=== PATIENT | male | born 1945 | race Caucasian/White ===

== ENCOUNTER 2017-12-04 10:11 | Outpatient (REF) | payer MEDICARE, MEDICAID, SELFPAY ==
[2017-12-04 21:47] LABS: Anion Gap 10.4 mmol/L (3-11); BUN 28 mg/dL (7-18); CO2 27.6 mmol/L (21.0-32.0); CREATININE 1.08 mg/dL (0.70-1.30); Chloride 100 mmol/L (98-107); Glucose 192 mg/dL (70-100); Potassium 4.1 mmol/L (3.5-5.1); Sodium 138 mmol/L (136-145)
[2017-12-04 22:12] LABS: Microalb ug/mg Crea 7.5 ug/mg Cr
[2017-12-06 12:39] LABS: Hepatitis C Ab w Rflx HCV PCR Negative (NEGAT)
== END 2017-12-04 10:31 ==
LOC: NCHCN 10:11
PROVIDERS: Visit Provider Internal Medicine
DX: I10 Essential (primary) hypertension (principal); E11.9 Type 2 diabetes mellitus without complications; Z11.59 Encounter for screening for other viral diseases
CPT/HCPCS: 80048; 86803; 82043; 82570

== ENCOUNTER 2018-12-07 09:31 | Outpatient (REF) | payer OTHER, MEDICAID, SELFPAY ==
[2018-12-07 20:48] LABS: COMMENT (LAB VIEW ONLY) 153.26 mg/dL; Microalb ug/mg Crea 8.1 ug/mg Cr
[2018-12-07 20:51] LABS: Anion Gap 10.6 mmol/L (3-11); BUN 17 mg/dL (7-18); CO2 30.4 mmol/L (21.0-32.0); Calcium 9.6 mg/dL (8.5-10.1); Calculated LDL 61 mg/dL; Chloride 100 mmol/L (98-107); Cholesterol 140 mg/dL (50-200); Estimated GFR 59.51 (mL/min/1.73m2); Glucose 139 mg/dL (70-100); HDL Cholesterol 30 mg/dL (40-60); Potassium 4.4 mmol/L (3.5-5.1); Sodium 141 mmol/L (136-145); Triglyceride 249 mg/dL (30-150)
[2018-12-07 20:53] LABS: Hemoglobin A1C 6.9 % (4.5-6.2)
== END 2018-12-07 09:51 ==
LOC: NCHCN 09:31
PROVIDERS: Visit Provider Internal Medicine
DX: E11.9 Type 2 diabetes mellitus without complications (principal); I10 Essential (primary) hypertension; Z13.6 Encounter for screening for cardiovascular disorders
CPT/HCPCS: 80048; 80061; 82043; 82570; 83036

== ENCOUNTER 2019-05-23 12:11 | Outpatient (REF) | payer OTHER, MEDICAID, SELFPAY ==
[2019-05-23 20:59] LABS: Abs Immature Grans 0.01 k/cumm (0.0-0.09); Absolute Basophil Count 0.04 k/cumm (0.0-0.2); Absolute Eosinophil Count 0.11 k/cumm (0.0-0.7); Absolute Lymphocyte Count 1.08 k/cumm (1.2-3.4); Absolute Monocyte Count 0.43 k/cumm (0.11-0.7); Absolute Neutrophil Count 5.06 k/cumm (1.2-6.7); Basophils % 0.6; Eosinophils % 1.6; HCT 41.4 % (40.0-50.0); HGB 13.9 g/dL (13.5-17.5); Immature Grans % 0.1 %; Mean Corp. HGB Concentration 33.6 g/dL (32.0-36.0); Mean Corpuscular Hemoglobin 30.1 pg (27.0-33.0); Mean Corpuscular Volume 89.6 fL (80-95); Mean Platelet Volume 11.4 fL (8.0-11.0); Monocytes % 6.4; Neutrophils % 75.3; Platelet Count 303 x1000/uL (130-400); RBC 4.62 m/cumm (4.50-6.00); RBC Distribution Width 13.7 % (11.8-14.1); White Blood Cell Count 6.73 k/cumm (4.4-10.8)
[2019-05-23 21:00] LABS: Anion Gap 8.3 mmol/L (3-11); BUN 18 mg/dL (7-18); CO2 29.7 mmol/L (21.0-32.0); Calcium 9.7 mg/dL (8.5-10.1); Chloride 100 mmol/L (98-107); Glucose 144 mg/dL (74-106); Potassium 4.5 mmol/L (3.5-5.1); Sodium 138 mmol/L (136-145)
== END 2019-05-23 12:31 ==
LOC: NCHCN 12:11
PROVIDERS: Visit Provider Internal Medicine
DX: I10 Essential (primary) hypertension (principal); E11.9 Type 2 diabetes mellitus without complications
CPT/HCPCS: 80048; 85025

== ENCOUNTER 2019-06-28 08:30 | Outpatient (CLI) | payer OTHER, MEDICAID, SELFPAY ==
[2019-06-29 13:56] LABS: COVID-19 RT-PCR UVMMC Result Negative (Negative)
== END 2019-06-28 08:50 ==
PROVIDERS: PCP Nurse Practitioner Family; Visit Provider Nurse Practitioner Family
DX: R50.9 Fever, unspecified (principal)
CPT/HCPCS: U0003

== ENCOUNTER 2020-01-10 10:20 | Outpatient (REF) | payer OTHER, MEDICAID, SELFPAY | END 2020-01-10 10:40 | LOC: NCHCN 10:20 | PROVIDERS: PCP Nurse Practitioner Family; Visit Provider Nurse Practitioner Family | DX: Z51.89 Encounter for other specified aftercare (principal) | CPT/HCPCS: 87070; 87205 ==

== ENCOUNTER 2020-07-03 14:56 | Outpatient (REF) | payer OTHER, MEDICAID, SELFPAY ==
[2020-07-03 21:32] LABS: COMMENT (LAB VIEW ONLY) 62.11 mg/dL; Microalb ug/mg Crea 5.5 ug/mg Cr
[2020-07-03 21:46] LABS: Hemoglobin A1C 6.7 % (<5.7)
[2020-07-03 21:48] LABS: ALT 31 U/L (16-63); AST 17 U/L (15-37); Albumin 4.2 g/dL (3.4-5.0); Alkaline Phosphatase 62 U/L (46-116); Anion Gap 11.7 mmol/L (3-11); BUN 22 mg/dL (7-18); Bilirubin, Total 0.6 mg/dL (0.2-1.0); CO2 28.3 mmol/L (21.0-32.0); CREATININE 1.2 mg/dL (0.70-1.30); Calcium 9.7 mg/dL (8.5-10.1); Chloride 102 mmol/L (98-107); Estimated GFR 59.35 (mL/min/1.73m2); Glucose 142 mg/dL (74-106); Potassium 4.6 mmol/L (3.5-5.1); Sodium 142 mmol/L (136-145); Total Protein 7.7 g/dL (6.4-8.2)
== END 2020-07-04 07:50 | disposition home or self-care (01) ==
LOC: NCHCN 14:56
PROVIDERS: PCP Nurse Practitioner Family; Visit Provider Internal Medicine
DX: E11.8 Type 2 diabetes mellitus with unspecified complications (principal); I10 Essential (primary) hypertension
CPT/HCPCS: 80053; 82043; 82570; 83036

== ENCOUNTER 2021-06-29 07:47 | Outpatient (REF) | payer MEDICARE, MEDICAID, SELFPAY ==
[2021-06-29 17:39] LABS: Hemoglobin A1C 7.2 % (<5.7)
[2021-06-29 17:52] LABS: COMMENT (LAB VIEW ONLY) 84.04 mg/dL; Microalb ug/mg Crea 6.3 ug/mg Cr
[2021-06-29 17:53] LABS: Anion Gap 7.4 mmol/L (3-11); BUN 25 mg/dL (7-18); CO2 27.6 mmol/L (21.0-32.0); CREATININE 1.2 mg/dL (0.70-1.30); Calcium 9.3 mg/dL (8.5-10.1); Calculated LDL 76 mg/dL (<100); Chloride 101 mmol/L (98-107); Cholesterol 178 mg/dL (<200); Estimated GFR 59.18 (mL/min/1.73m2); Glucose 157 mg/dL (74-106); HDL Cholesterol 35 mg/dL (40-60); Sodium 136 mmol/L (136-145); Triglyceride 339 mg/dL (<150)
[2021-06-30 20:12] LABS: PSA, Screening 0.7 ng/mL (<=6.5)
== END 2021-06-29 07:48 | disposition home or self-care (01) ==
LOC: NCHCN 07:47
PROVIDERS: PCP Nurse Practitioner Family; Visit Provider Internal Medicine
DX: I10 Essential (primary) hypertension (principal); E78.5 Hyperlipidemia, unspecified; E11.9 Type 2 diabetes mellitus without complications; Z12.5 Encounter for screening for malignant neoplasm of prostate
CPT/HCPCS: 80048; 80061; 84153; 82043; 82570; 83036

== ENCOUNTER 2021-10-05 17:56 | Outpatient (REF) | payer MEDICARE, MEDICAID, SELFPAY ==
[2021-10-05 19:11] LABS: ALT 25 U/L (16-63); AST 17 U/L (15-37); Albumin 3.7 g/dL (3.4-5.0); Alkaline Phosphatase 58 U/L (46-116); Anion Gap 10.5 mmol/L (3-11); BUN 15 mg/dL (7-18); Bilirubin, Total 0.6 mg/dL (0.2-1.0); CO2 25.5 mmol/L (21.0-32.0); CREATININE 1.1 mg/dL (0.70-1.30); Calcium 9.2 mg/dL (8.5-10.1); Chloride 100 mmol/L (98-107); Glucose 157 mg/dL (74-106); Sodium 136 mmol/L (136-145); Total Protein 7.1 g/dL (6.4-8.2)
[2021-10-05 20:33] LABS: Calculated LDL 49 mg/dL (<100); Cholesterol 124 mg/dL (<200); HDL Cholesterol 36 mg/dL (40-60); Triglyceride 196 mg/dL (<150)
== END 2021-10-05 17:57 | disposition home or self-care (01) ==
LOC: NCHCN 17:56
PROVIDERS: PCP Nurse Practitioner Family; Visit Provider Nurse Practitioner Family
DX: E78.5 Hyperlipidemia, unspecified (principal); E11.9 Type 2 diabetes mellitus without complications; E66.9 Obesity, unspecified
CPT/HCPCS: 80053; 80061

== ENCOUNTER 2023-02-02 13:28 | Outpatient (REF) | payer MEDICARE, MEDICAID, SELFPAY ==
[2023-02-02 15:12] LABS: HCT 44.6 % (40.0-50.0); HGB 14.4 g/dL (13.5-17.5); MCH 30.5 pg (27.0-33.0); MCHC 32.3 % (32.0-36.0); MCV 95 fL (80-95); MPV 10.7 fL (8.0-11.0); Platelet Count 282 10^3/uL (130-400); RBC 4.72 10^6/uL (4.36-5.78); RDW 14.3 % (11.8-14.1); RDW-SD 49.1 fL; WBC 5.94 10^3/uL (4.4-10.8)
[2023-02-02 15:25] LABS: Anion Gap 9.7 mmol/L (3-11); BUN 21 mg/dL (7-18); CO2 27.3 mmol/L (21.0-32.0); CREATININE 1.1 mg/dL (0.70-1.30); Calcium 9.5 mg/dL (8.5-10.1); Calculated LDL 45 mg/dL (<100); Chloride 103 mmol/L (98-107); Cholesterol 125 mg/dL (<200); Estimated GFR 69.57 (mL/min/1.73m2); Glucose 164 mg/dL (74-106); HDL Cholesterol 38 mg/dL (40-60); Potassium 4.6 mmol/L (3.5-5.1); Sodium 140 mmol/L (136-145); Triglyceride 213 mg/dL (<150)
[2023-02-02 15:33] LABS: Hemoglobin A1C 6.3 % (<5.7)
== END 2023-02-02 13:29 | disposition home or self-care (01) ==
LOC: NCHCN 13:28
PROVIDERS: PCP Nurse Practitioner Family; Visit Provider Internal Medicine
DX: I10 Essential (primary) hypertension (principal); E78.5 Hyperlipidemia, unspecified; E11.9 Type 2 diabetes mellitus without complications
CPT/HCPCS: 80048; 80061; 85027; 83036

== ENCOUNTER 2023-08-07 09:17 | Outpatient (REF) | payer MEDICARE, MEDICAID, SELFPAY ==
[2023-08-07 16:40] LABS: COMMENT (LAB VIEW ONLY) 65.85 mg/dL; Microalb ug/mg Crea 3.8 ug/mg Cr
== END 2023-08-07 09:18 | disposition home or self-care (01) ==
LOC: NCHCN 09:17
PROVIDERS: PCP Nurse Practitioner Family; Visit Provider Family Medicine
DX: E11.40 Type 2 diabetes mellitus with diabetic neuropathy, unspecified (principal)
CPT/HCPCS: 82043; 82570

== ENCOUNTER 2024-02-02 12:21 | Outpatient (REF) | payer MEDICARE, MEDICAID, SELFPAY ==
--- OUTSIDE RECORDS SUMMARY | 2024-02-02 12:24 | XMS_ITS | Encounter Summary ---
Author Organization [facility] Address [address] [place] [id number] Care Team Providers Care Drapery Estimator Name Role Phone Velma Jimenez Primary Care Provider [phone] Encounter Details Date Type Department Care Team (Late st Contact Info) Description 06/18/2019 10:[address] [facility] OR [address], [place] [id number] Tina Avelar MD [address] [facility] [address] [place] [address] Anesthesia Record Procedure Summary Procedure Name Responsible Anesthesiologist Anesthesia Start Time Anesthesia Stop Time pars plana vitrectomy, membrane peeling, and gas tamponade, all to the right eye (Right: Eye) Tina Avelar MD 06/18/19 1032 06/18/19 1134 Events Date Time Event Comment 06/18/2019 1032 An Start The patient was re-evaluated immediately before moderate or deep sedation use, before anesthesia induction, or before the anesthesia procedure. 1032 An Start Data 1038 Anesthesia Ready 1125 an stop data 1134 Handoff to RN I completed my handoff to the receiving nurse during which we: 1. Identified the patient 2. Identified the responsible provider 3. Reviewed the pertinent medical history 4. Discussed the surgical course 5. Reviewed intra-op anesthesia management and issues during anesthesia 6. Set expectations for post-procedure period 7. Allowed opportunity for questions and acknowledgement of understanding. 1134 Handoff to RN I completed my handoff to the receiving nurse during which we: 1. Identified the patient 2. Identified the responsible provider 3. Reviewed the pertinent medical history 4. Discussed the surgical course 5. Reviewed intra-op anesthesia management and issues during anesthesia 6. Set expectations for post-procedure period 7. Allowed opportunity for questions and acknowledgement of understanding. 1134 Handoff to RN I completed my handoff to the receiving nurse during which we: 1. Identified the patient 2. Identified the responsible provider 3. Reviewed the pertinent medical history 4. Discussed the surgical course 5. Reviewed intra-op anesthesia management and issues during anesthesia 6. Set expectations for post-procedure period 7. Allowed opportunity for questions and acknowledgement of understanding. 1134 An Stop Meds Name Total fentanyl citrate (PF) injection 25 mcg midazolam (VERSED) injection 1 mg/mL 1 m g ketOROLAC (TORADOL) injection 30 mg lactated ringers (LR) infusion 400 mL * Agents Name O2 N2O Air * Blood No blood administrations on file. Lines, Drains, and Airways Type Details Placement Removal Wound 06/18/19; 1103; Inci erich; Right; Eye; vitrectomy, membrane peel, gas instillation ; N; Full thickness 06/18/19 1103 by Mayra Michaels RN Peripheral IV 06/18/19; 0835; B Br aun Introcan; Left, Dorsal; Hand; Inserted by RN (, RN); 1; None; 3.15% Chlorhexidine with IPA; 06/18/19; 1233; Discharged 06/18/19 0835 by Devan Lagos RN 06/18/19 1233 by Brian Velazquez RN documented in this encounter Social History Tobacco Use Types Packs/Day Years Used Date Smoking Tobacco: Former Pipe Q uit: 2014 Cigars Quit: 2014 Smokeless Tobacco: Never Comments:only cigar or pipe 1 per day Alcohol Use Standard Drinks/Week Comments Yes 1 (1 standard drink = 0.6 oz pur e alcohol) Sex and Gender Information Value Date Recorded Sex Assigned at Not on file Legal Sex Male 11:50 EDT Gender Identity Male 06/11/2019 13:52 EDT Sexual Orientation Not on file documented as of this encounter OR Notes * Anesthesia Postprocedure Evaluation - Brandon Reyna APRN - 06/18/2019 1134 EDT Patient: Nathan Harper Vital signs were reviewed with the recovery nurse. [facility] Vitals Value Taken Time BP 156/85 06/18/2019 11:33 Temp 37.1 06/18/2019 11:34 Resp 21 06/18/2019 11:34 Pulse From Oximetry 90 BPM 06/18/2019 11:34 SpO2 98 % 06/18/2019 11:34 Vitals shown include unvalidated device data. Last Pain Score - Numeric Pain Level (Scale 1-10): 0 Type of Anesthesia - general Anesthesia Post Evaluation Level of consciousness: awake and alert and oriented Temperature status: normothermia Respiratory status: airway patent and room air Cardiovascular status: acceptable Hydration status: adequate Nausea/Vomiting: none Pain management: adequate Post-Op Assessment: patient tolerated procedure well with no complications and patient satisfied with anesthesia care Patient participation: able to participate Disposition: outpatient/home * Anesthesia Preprocedure Evaluation - Brandon Reyna APRN - 06/18/2019 0932 EDT Images from the original note were not included. Anesthesia Preprocedure Evaluation Patient Medical History, including Anesthesia History reviewed. Chart and Nursing Notes reviewed, including NPO status and Medication History. Additional ROS/History Findings: No Known Allergies Review of Systems Past Medical History: Diagnosis Date ??? Diabetes mellitus, type 2 ([facility] 2002 tx w/ oral meds .last A1c was 6.9 in 03/2019 ??? Exercise involving walking 1-2 mile daily ??? History of general anesthesia ??? Hyperlipidemia tx w/ meds ??? Hypertension tx w/ meds ??? Pain occas right hip pain Relevant Problems No relevant active problems Physical Exam Airway Mallampati: II Cardiovascular - normal exam Dental - normal exam Pulmonary - normal exam Abdominal Anesthesia Plan ASA 2 Anesthesia Type - MAC (plan changed to local/MAC due to fact that patient has nobody at home for post-op care) Anesthesia plan and risks discussed. Informed consent obtained from patient. Code status discussed? No The preoperative history and physical which was performed within 30 days of this procedure, has been reviewed and the clinically appropriate elements of the physical examination have been repeated. There are no changes to the documented history and physical or, if so, such changes are documented inthis note PAT Note (Notes from 05/19/19 through 06/18/19) PAT Note by Renay Dexter RN at 06/11/2019 9:50 Version 1 of 1 Have you had any flu like symptoms within past six weeks? Runny nose No Fever no Cough no SOB No Chest tightness no Please elaborate if yes: Have you been in close contact with someone who has been diagnosed with Covid 19? no (close contact, within 6 feet of any person known to have Coronavirus in the past 14 days) If patient develops any of these symptoms between now and their surgery date instruct them to call us back at [phone] to report symptoms If the patient answers yes, to any of these questions during PAT, -RN to flag this chart for anesthesia review and complete call -RN to communicate with surgical office about anesthesia review (If patient is in Surgical Admissions and answers yes, please notify Surgery and Anesthesia team). Follow proper precautions- yellow mask to patient/family. [place]: Visitor Policy: OP- one non-sick escort in waiting room, no visitors/escort in PeriOp Exceptions: Child-1 parent, special needs- 1 caregiver IP- One non-sick visitor/escort in waiting room, no visitors/escort in PeriOp Children under age of 16 y.o. are not permitted. Only ADA service animals are permitted into the hospital. All other animals, including previously approved therapy/support animals, are not allowed at this time. (No animals will be allowed into Preop, OR, or PACU)[TD.1] Attribution Raymond [email or web address] - Renay Dexter RN on 06/11/2019 11:30 documented in this encounter Plan of Treatment Not on file documented as of this encounter Visit Diagnoses Not on filedocumented in this encounter Administered Medications Inactive Administered Medications - up to 3 most recent administrations Medication Order MAR Action Action Date Dose Rate Site fentaNYL citrate (PF) injection intravenous, PRN, Starting on Mon06/18/19 at 1040, Until Mon06/18/19 at 1134, Routine, Anesthesia Intraprocedure Given 06/18/2019 10:40 EDT 25 mcg ketOROLAC (TORADOL) injection PRN, Starting on Mon06/18/19 at 1121, Until Mon06/18/19 at 1134, Routine, Anesthesia Intraprocedure Given 06/18/2019 11:21 EDT 30 mg lactated ringers (LR) infusion 30 mL/hr, intravenous, CONTINUOUS, Starting on Mon06/18/19 at 0845, Until Mon06/18/19 at 1520, Routine, Preprocedure Continued by Anesthesia 06/18/2019 10:49 EDT New Bag 06/18/2019 8:39 EDT 30 mL/hr 30 mL/hr midazolam (PF) (VERSED) injection intravenous, PRN, Starting on Mon06/18/19 at 1042, Until Mon06/18/19 at 1134, Routine, Anesthesia Intraprocedure Given 06/18/2019 10:42 EDT 1 mg documented in this encounter Care Teams Drapery Estimator Relationship Specialty Start Date End Date Velma Jimenez [address] [facility] [place] [address] PCP - General Internal Medicine - Primary Care 06/18/19 documented as of this encounter
--- OUTSIDE RECORDS SUMMARY | 2024-02-02 12:24 | XMS_ITS | Encounter Summary ---
Author Organization [facility] Address [address] [place] [id number] Care Team Providers Care Healthcare Management Name Role Phone Velma Jimenez Primary Care Provider [phone] Encounter Details Date Type Department Care Team (Late st Contact Info) Description 06/18/2019 9:50 EDT - 06/18/2019 11:45 EDT Surgery [facility] [place] [address] [place] [id number] Federica Davidson MD [address] [place] [address] [address] [place] [address] pars plana vitrectomy, membrane peeling, and gas tamponade, all to the right eye [57066 (CPT??)] Surgery Details Date/Time Status Location OR Service Patient Class Case Cl ass Case Type Trauma Case? 06/18/2019 0950 Posted [facility] OR [facility] H - Elective Panel 1 Procedure LRB Anes Op Region Wound Class Comments pars plana vitrectomy, membr ane peeling, and gas tamponade, all to the right eye Right General Eye Class I/ Clean Surgeon Surgeon Role Service Panel Federica Davidson MD Primary Ophthalmology 1 documented in this encounter Social History Tobacco [...] on file documented as of this encounter Last Filed Vital Signs Vital Sign Reading Time Taken Comments Blood Pressure 151/78 06/18/2019 1145 EDT Pulse - - Temperature 36.6 ??C (97.9 ??F) 06/18/2019 1134 EDT Respiratory Rate 19 06/18/2019 1145 EDT Oxygen Saturation 99% 06/18/2019 1145 EDT Inhaled Oxygen Concentration - - Weight 93.6 kg (206 lb 5.6 oz) 06/18/2019 0819 E DT Height - - Body Mass Index 32.32 06/11/2019 0939 EDT documented in this encounter Discharge Instructions * Discharge Instructions* Federica Davidson MD - 06/18/2019 9:18 EDT ??? Leave your eye patch and shield - if any were placed by your surgeon - in place. ??? For pain, you may use Tylenol (acetominophen) and/or Advil (ibuprofen) or other similar non-prescription, [id number] medications in doses as noted on manufacturers' labels. Do not exceed daily dosing limits for any of the active ingredients. Be careful to check other medications you maybe taking by mouth for other conditions that may coincidentally contain one or more of these activeingredients. For example, if you have a chronic pain condition - say, arthritis - and are on pills regularly for that, check to see if those pills contain acetominophen as one of their active ingredients before using additional acetominophen for eye pain after today's surgery. For pain not controlled with this approach and/or for concerns and/or questions about use of these medications, call [facility] at [phone]. ??? Please maintain strict post-operative face-down (i.e., sleeping on one's stomach) positioning at all times except during three one-hour meal breaks per day and whatever brief breaks you need for dressing, restroom, shower, safe ambulation, etc. ??? For showering, avoid directing your face into the stream of the shower head. Do not worry abouta small amount of water and/or soap that gets into your eye patch and/or eye during shampooing, face washing, etc. ??? Do not lift anything heavier than a light bag of groceries and, until notified by your surgeon,do not exercise. ??? Follow-up tomorrow at [facility], [address] , 2nd floor, [place], at 9:00AM . (That location is up the block from [place] at the corner of [address] and [facility], across the street from [employer], and next door to [facility].) At that appointment, your surgeon and the [facility] staff will review post-operative instructions that will apply moving forward after tomorrow's visit; the instructions you are holding and reading right now apply to today, tonight, and tomorrow morning prior to your appointment. Tomorrow, you will learn about eye drop use after patch removal, further activity and/or exercise restrictions, any ongoing positioning needs, etc. It is very strongly recommended that you have another adult with you at that appointment and in the examination room to help you keep track of all of this and to help you figure out what questions you might have. documented in this encounter Medications at Time of Discharge acetaminophen (TYLENOL) 500 mg tablet Take 500 mg by mouth. aspirin 81 mg EC tablet Take 81 mg by mouth. diphenhydrAMINE (BENADRYL) 25 mg capsule Take 25 mg by mouth every 6 hours as needed. lisinopriL-hydro chlorothiazide (ZESTORETIC) 20-25 mg per tablet Take 1 Tab by mouth. metFORMIN (GLUCOPHAGE) 500 mg tablet Take 1,000 mg by mouth 2 times daily with breakfast and dinner. Multivitamins with Minerals tablet tablet Take 1 Tab by mouth daily. simvastatin (ZOCOR) 20 mg tablet Take 20 mg by mouth daily. SITagliptin (JANUVIA) 100 mg tablet Take 100 mg by mouth daily. triamcinolone (KENALOG) 0.1 % cream Apply topically as needed. documented as of this encounter Discharge Disposition Disposition Code Departure Means Destination Comment s Home or Self Care Car Home [facility] Services documented in this encounter H&P Notes * Federica Davidson MD - 06/18/2019 0911 EDT The preoperative history and physical which was performed within 30 days of this procedure has been reviewed and the clinically appropriate elements of the physical examination have been repeated. There are no changes to the documented history and physical or if so such changes are documented below Federica Davidson MD 06/18/2019 9:12 documented in this encounter Nursing Notes * Quique Ricardo, RN - 06/18/2019 0737 EDT COVID 19 Screening Perioperative PreOp Surgical Waiting Area Screening: Patient and Family will be screened at designated points of entry to [facility] Patient and Family will be screened again at entrance to Surgical Waiting Area by PreOp Screening RNs ??? PreOp Screening RN asks screening questions including (recent or chronic): - Cough, no - Runny nose, no - SOB, no - Fever/Chills, no - Chest congestion, no - Cold, no ? ? Temperature assessed: Temp > 38.0 is considered febrile ??? If patient or visitor screens positive for any symptoms: (consistent with entry screening procedures) ??? Hand patient and visitor a mask ??? Put them in the consult room ??? Page anesthesia charge to come and evaluate patient and give recommendation as to whether surgery should proceed ??? Anesthesia recommendation: 1. Cancel surgery: ??? Follow cancellation protocol - procedure not performed -Use Covid smart phrase to document planfor cancellation 2. Proceed with surgery: ??? Deemed not significant increased risk for being COVID+: ? Planned precautions - patient to continue with wearing mask; staff should wear mask and consistent hand hygiene with direct patient care ? PreOp Screening RN to document in the COVID smartphrase so the rest of the care team is aware ? Notify PreOp Big Data Software Engineer (TL) ??? Deemed high risk for being COVID+: ? Anesthesia notifies ID/Covid hotline to assess need for formal testing ? Appropriate PPE (surgical mask & gloves) to be donned by any staff coming in contact with patient ? Communicate with PreOp TL ? PreOp TL to set up negative pressure room and isolation cart ? PreOp Screening RN to transport patient to negative pressure room KENDRA in appropriate PPE (surgical mask, gloves) ? PreOp Screening RN hands patient off to PreOp RN. PreOp RN is in appropriate PPE in the negative pressure room - Gown - Gloves - N95 mask and face shield (or PAPR) - Shoe and head covers - Dons hospital scrubs - PAPR and hospital scrubs are located in OR dictation room off of OR lounge ? PreOp Screening RN to document using COVID smartphrase. 3. If deemed by anesthesia visitor must return to their vehicle and wait for phone call Pt temp: 37.1 Visitor Temp: Visitor Name: (If visitor is asked to wait in vehicle, please document visitor contacts in Epic) RN's to explain visitor policy: Visitor Policy OP- one visitor in WR, no visitors in PeriOp Exceptions: Child-1 parent, special needs- 1 caregiver IP- One visitor in WR, no visitors in PeriOp, visitor to leave after surgeon consult No children <16 yo in A. documented in this encounter OR Notes * OR Surgeon - Federica Davidson MD - 06/18/2019 0000 EDT OPERATIVE REPORT SERVICE DATE: 06/18/2019 PREOPERATIVE DIAGNOSIS: Macular hole, right eye. POSTOPERATIVE DIAGNOSIS: Macular hole, right eye. PROCEDURE: A 25-gauge pars plana vitrectomy, membrane peel, air-fluid exchange, C3F8 gas injection,right eye. ANESTHESIA: Retrobulbar anesthesia, monitored anesthesia care, right eye. SURGEON: Federica Davidson MD FINISH CLEANER: Carrie Lees [facility] INDICATIONS: The patient had a history of vision loss and was found to have a full-thickness macular hole in his right eye. He wished surgical rehabilitation of vision. NARRATIVE: After fully informed consent was obtained from the patient, including the possible loss of vision, loss of the eye or the need for reoperation, the patient was brought to the operating suite where the appropriate monitoring leads were placed on his body. A retrobulbar injection of 0.75% Marcaine mixed 50/50 with 2% lidocaine was instilled by the operating surgeon. When adequate akinesia and anesthesia were obtained, the patient was prepped and draped in the usual sterile fashion. A lid speculum was placed in his right eye, which was marked. A 25-gauge trocar was placed 3 mm posterior to the limbus at the 8 o'clock meridian. An infusion line was then snapped into place and turned on under direct visualization without complication. Trocars were placed at the 10 o'clock and 2 o'clock meridian, 3 mm posterior to the limbus. Using the wide angle Resight viewing system, a core vitrectomy was performed. Vitrectomy was carried out to the vitreous base. Triamcinolone acetonide was then injected into the vitreous cavity to highlight the internal limiting membrane. Using the flat macular lens membrane was peeled for 360 degrees around the macular hole. The wide angle viewing system was then brought back into place and the retinal periphery was checked for 360 degrees with scleral depression. No retinal breaks or tears were noted. An air-fluid exchange was performed. The instruments were removed from the eye, and C3F8 gas at a concentration of 14% was injected through the existing infusion line with egress of gas through the superotemporal sclerotomy. When adequate exchangehad occurred, trocars were removed from the eye. The eye pressure was checked and found to be approximately 15. Subconjunctival injections of Ancef and tobramycin were placed, as well as a sub Tenon's injection of Solu-Medrol, then the lid speculum was removed from the eye. The eye was dressed withatropine drops, TobraDex ointment, a patch and Feliciano shield. The patient left the operating suite in good stable condition. He will maintain a face-down position and will be seen in 1 day's time for followup. Unless otherwise noted, there were no complications, no blood loss, no cultures obtained, no specimens removed, and no drains retained. Federica Davidson MD 11 26 AM / Federica Davidson MD ln Confirmation: [id number] Dictation ID: [id number] documented in this encounter Miscellaneous Notes * Brief Op Note - Federica Davidson MD - 06/18/2019 0918 EDT Date: 06/18/2019 Brief Op Note Pre-op Diagnosis(es): macular hole right eye Post-op Diagnosis(es): macular hole right eye Procedure(s): 25g pars plana vitrectomy, membrane peeling, C3F8 gas tamponade, right eye Surgeon: Federica Davidson MD Doughnut Machine Operator: Erin Lees Anesthesia: general endotracheal intubation IV Fluid: 600cc Urine output: none Complications: none Federica Davidson MD documented in this encounter Plan of Treatment Not on file documented as of this encounter Procedures Procedure Name Priority Date/Time Associated Diagnosis Comments POCT GLUCOSE, INTERFACED Routine 06/18/2019 11:36 EDT VITRECTOMY, WITH RETINAL INTERNAL LIMITING MEMBRANE REMOVAL, PARS PLANA APPROACH 06/18/2019 10:19 EDT Macular hole of right eye POCT GLUCOSE, INTERFACED Routine 06/18/2019 8:26 EDT ECG REPORT - SCANNED 06/06/2019 14:39 EDT documented in this encounter Results * (ABNORMAL) POCT GLUCOSE, INTERFACED (06/18/2019 11:36 EDT) Glucose, POC 141(H) 70 - 100 mg/dL 06/18/2019 11:36 EDT [facility] irrigation system installer ID [id number] 06/18/2019 11:36 EDT [facility] HN LAB POC COMMENT (GLUCOSE) Test Performed by Nursing Services 06/18/2019 11:36 EDT [facility] Blood CAPILLARY BLOOD / Unknown 06/18/2019 11:36 EDT 06/18/2019 11:36 EDT us Tina Maiteekaterina Avelar MD POINT OF CARE TEST ORDERABL ES Final Result [facility] [address] [place] [address] * (ABNORMAL) POCT GLUCOSE, INTERFACED (06/18/2019 8:26 EDT) Glucose, POC 188(H) 70 - 100 mg/dL 06/19/2019 5:48 EDT [facility] irrigation system installer ID [id number] 06/19/2019 5:48 EDT [facility] HN LAB POC COMMENT (GLUCOSE) Test Performed by Nursing Services 06/19/2019 5:48 EDT [facility] Blood CAPILLARY BLOOD / Unknown 06/18/2019 8:26 EDT 06/19/2019 5:48 EDT us Federica Davidson MD POINT OF CARE TEST ORDERA BLES Final Result [facility] [address] [place] [address] * ECG REPORT - SCANNED (06/06/2019 14:39 EDT) 06/06/2019 14:3 9 EDT us Scan 2 Turning Machine Set Up Operator PROCEDURE/MINOR SURGICAL OR DERABLES Final Result documented in this encounter Visit Diagnoses Diagnosis Macular hole of right eye- Primary Macular cyst, hole, or pseudohole of retina Macular hole of right eye Macular cyst, hole, or pseudohole of retina documented in this encounter Admitting Diagnoses Diagnosis Macular hole of right eye Macular cyst, hole, or pseudohole of retina documented in this encounter Administered Medications Inactive Administered Medications - up to 3 most recent administrations Medication Order MAR Action Action Date Dose Rate Site acetaminophen (TYLENOL) tablet 650 mg 650 mg, oral, ONCE PRN, 1 dose, Starting on Mon06/18/19 at 1051, Until Mon06/18/19 at 1204, Pain, Routine Given 06/18/2019 12:04 EDT 650 mg atropine 0.1 mg/mL syringe 0.5 mg 0.5 mg, intravenous, PRN, Starting on Mon06/18/19 at 1122, Until Mon06/18/19 at 1520, Symptomatic HR < 50, Routine, Recovery (only) atropine 1 % ophthalmic solution 1 Drop 1 Drop, right eye, PRE-OP Q 5 MINUTES, 3 doses, Starting on Mon06/18/19 at 0843, Until Mon06/18/19 at 0859, vitreoretinal surgery, Routine, Preprocedure Given 06/18/2019 8:59 EDT 1 Drop Given 06/18/2019 8:58 EDT 1 Drop Given 06/18/2019 8:57 EDT 1 Drop atropine 1 % ophthalmic solution As needed, Starting on 06/18/19 at 1130, Until Mon06/18/19 at 1134, Routine, Intraprocedure Given 06/18/2019 11:30 EDT 2 Drops balanced salts (BSS) ophthalmic solution As needed, Starting on Mon06/18/19 at 1004, Until 06/18/19 at 1009, Routine, Intraprocedure Given 06/18/2019 10:04 EDT 500 mL bupivacaine (PF) (MARCAINE) 0.75 % (7.5 mg/mL) injection As needed, Starting on e 06/18/19 at 1042, Until Mon06/18/19 at 1051, Routine, Intraprocedure Given 06/18/2019 10:42 EDT 2.5 mL Right Eye ceFAZolin (ANCEF) injection As needed, Starting on e 06/18/19 at 1115, Until e 06/18/19 at 1101, Routine, Intraprocedure Given 06/18/2019 11:15 EDT 100 mg dextrose 50 % solution 12.5 g 12.5 g, intravenous, PRN, Starting on e 06/18/19 at 0950, Until Mon06/18/19 at 1520, Low Blood Sugar, Routine, Preprocedure Given 06/18/2019 10:45 EDT 3 mL Other glucagon injection 1 mg 1 mg, intramuscular, PRN, Starting on Mon06/18/19 at 0950, Until 06/18/19 at 1520, Low Blood Sugar, Routine, Preprocedure lactated ringers (LR) infusion 30 mL/hr, intravenous, CONTINUOUS, Starting on e 06/18/19 at 0845, Until Mon06/18/19 at 1520, Routine, Preprocedure Continued by Anesthesia 06/18/2019 10:49 EDT New Bag 06/18/2019 8:39 EDT 30 mL/hr 30 mL/hr lactated ringers (LR) infusion at 75 mL/hr, intravenous, CONTINUOUS, Starting on Mon06/18/19 at 1145, Until Mon06/18/19 at 1520, Routine, Recovery (only) lidocaine (PF) 10 mg/mL (1 %) injection 2 mg 2 mg, intradermal, PRN, 4 doses, Starting on Mon06/18/19 at 0819, Until Mon06/18/19 at 1520, peripheral intravenous catheter placement, Routine, Preprocedure lidocaine (PF) 20 mg/mL (2 %) injection As needed, Starting on Mon06/18/19 at 1042, Until Mon06/18/19 at 1051, Routine, Intraprocedure Given 06/18/2019 10:42 EDT 2.5 mL Right Eye methylPREDNISolone sod suc(PF) (SOLU-MEDROL) injection As needed, Starting on Mon06/18/19 at 1134, Until Mon06/18/19 at 1135, Routine, Intraprocedure Given 06/18/2019 11:34 EDT 20 mg Right Eye naloxone (NARCAN) injection 0.2 mg 0.2 mg, intravenous, PRN, Starting on Mon06/18/19 at 1122, Until Mon06/18/19 at 1520, Opioid Reversal, Routine, Recovery (only) phenylephrine (MYDFRIN) 2.5 % ophthalmic solution 1 Drop 1 Drop, right eye, PRE-OP Q 5 MINUTES, 3 doses, Starting on Mon06/18/19 at 0843, Until Mon06/18/19 at 0915, vitreoretinal surgery, Routine, Preprocedure Given 06/18/2019 9:15 EDT 1 Drop Given 06/18/2019 9:13 EDT 1 Drop Given 06/18/2019 9:12 EDT 1 Drop tobramycin (NEBCIN) injection As needed, Starting on Mon06/18/19 at 1132, Until Mon06/18/19 at 1134, Routine, Intraprocedure Given 06/18/2019 11:32 EDT 20 mg Right Eye tobramycin-dexamethasone (TOBRADEX) 0.3-0.1 % ophthalmic ointment As needed, Starting on Mon06/18/19 at 1131, Until Mon06/18/19 at 1134, Intraprocedure Given 06/18/2019 11:31 EDT 0.5 mL triamcinolone acetonide (KENALOG-40) injection As needed, Starting on Mon06/18/19 at 1115, Until Mon06/18/19 at 1101, Routine, Intraprocedure Given 06/18/2019 11:15 EDT 20 mg tropicamide (MYDRIACYL) 1 % ophthalmic solution 1 Drop 1 Drop, right eye, PRE-OP Q 5 MINUTES, 3 doses, Starting on Mon06/18/19 at 0843, Until Mon06/18/19 at 0907, vitreoretinal surgery, Routine, Preprocedure Given 06/18/2019 9:07 EDT 1 Drop Given 06/18/2019 9:06 EDT 1 Drop Given 06/18/2019 9:04 EDT 1 Drop documented in this encounter Active and Recently Administered Medications Times are shown in EDT. Continuous Medication Order 06/16/2019 06/17/2019 06/18/2019 lactated ringers (LR) infusion 30 mL/hr, intravenous, CONTINUOUS, Starting on Mon06/18/19 at 0845, Until Mon06/18/19 at 1520, Routine, Preprocedure 0839 (New Bag - Prov ider: Devan Lozada RN)1049 (Continued by Anesthesia - Provider: Brandon Reyna APRN)1134 (Anesthesia Volume Adjustment - Provider: Brandon Reyna APRN) lactated ringers (LR) infusion at 75 mL/hr, intravenous, CONTINUOUS, Starting on Mon06/18/19 at 1145, Until Mon06/18/19 at 1520, Routine, Recovery (only) 1144 (Continued Infu erich - Provider: Brian Velazquez RN)1215 (Completed - Provider: Brian Velazquez RN) PRN Medication Order 06/16/2019 06/17/2019 06/18/2019 acetaminophen (TYLENOL) tablet 650 mg (COMPLETED) 650 mg, oral, ONCE PRN, 1 dose, Starting on Mon06/18/19 at 1051, Until Mon06/18/19 at 1204, Pain, Routine 1204 (Given - Provid er: Brian Velazquez RN) atropine 0.1 mg/mL syringe 0.5 mg 0.5 mg, intravenous, PRN, Starting on Mon06/18/19 at 1122, Until Mon06/18/19 at 1520, Symptomatic HR < 50, Routine, Recovery (only) atropine 1 % ophthalmic solution 1 Drop (COMPLETED) 1 Drop, right eye, PRE-OP Q 5 MINUTES, 3 doses, Starting on Mon06/18/19 at 0843, Until Mon06/18/19 at 0859, vitreoretinal surgery, Routine, Preprocedure 0857 (Given - Provid er: Devan Lozada RN)0858 (Given - Provider: Devan Lozada RN)0859 (Given - Provider: Devan Lozada RN) atropine 1 % ophthalmic solution (CANCELED) As needed, Starting on Mon06/18/19 at 1130, Until Mon06/18/19 at 1134, Routine, Intraprocedure 1130 (Given - Provid er: Federcia Davidson MD) balanced salts (BSS) ophthalmic solution (CANCELED) As needed, Starting on Mon06/18/19 at 1004, Until Mon06/18/19 at 1009, Routine, Intraprocedure 1004 (Given - Provid er: Federica Davidson MD - Comment: BSS1: [id number] BSS2: [id number] 50% Dextrose, 3 mL: [id number]) bupivacaine (PF) (MARCAINE) 0.75 % (7.5 mg/mL) injection (CANCELED) As needed, Starting on Mon06/18/19 at 1042, Until Mon06/18/19 at 1051, Routine, Intraprocedure 1042 (Given - Provid er: Federica Davidson MD) ceFAZolin (ANCEF) injection (CANCELED) As needed, Starting on Mon06/18/19 at 1115, Until Mon06/18/19 at 1101, Routine, Intraprocedure 1115 (Given - Provid er: Federica Davidson MD - Comment: lot#[id number]) dextrose 50 % solution 12.5 g 12.5 g, intravenous, PRN, Starting on Mon06/18/19 at 0950, Until Mon06/18/19 at 1520, Low Blood Sugar, Routine, Preprocedure 1045 (Given - Provid er: Federica Davidson MD - Comment: added to BSS) glucagon injection 1 mg 1 mg, intramuscular, PRN, Starting on Mon06/18/19 at 0950, Until Mon06/18/19 at 1520, Low Blood Sugar, Routine, Preprocedure lidocaine (PF) 10 mg/mL (1 %) injection 2 mg 2 mg, intradermal, PRN, 4 doses, Starting on Mon06/18/19 at 0819, Until Mon06/18/19 at 1520, peripheral intravenous catheter placement, Routine, Preprocedure lidocaine (PF) 20 mg/mL (2 %) injection (CANCELED) As needed, Starting on Mon06/18/19 at 1042, Until Mon06/18/19 at 1051, Routine, Intraprocedure 1042 (Given - Provid er: Federica Davidson MD) methylPREDNISolone sod suc(PF) (SOLU-MEDROL) injection (CANCELED) As needed, Starting on Mon06/18/19 at 1134, Until Mon06/18/19 at 1135, Routine, Intraprocedure 1134 (Given - Provid er: Federica Davidson MD) naloxone (NARCAN) injection 0.2 mg 0.2 mg, intravenous, PRN, Starting on Mon06/18/19 at 1122, Until Mon06/18/19 at 1520, Opioid Reversal, Routine, Recovery (only) phenylephrine (MYDFRIN) 2.5 % ophthalmic solution 1 Drop (COMPLETED) 1 Drop, right eye, PRE-OP Q 5 MINUTES, 3 doses, Starting on Mon06/18/19 at 0843, Until Mon06/18/19 at 0915, vitreoretinal surgery, Routine, Preprocedure 0912 (Given - Provid er: Devan Lozada RN)09 (Given - Provider: Devan Lozada RN)0915 (Given - Provider: Devan Lozada RN) tobramycin (NEBCIN) injection (CANCELED) As needed, Starting on Mon06/18/19 at 1132, Until Mon06/18/19 at 1134, Routine, Intraprocedure 1132 (Given - Provid er: Federica Davidson MD - Comment: lot#[id number]) tobramycin-dexamethasone (TOBRADEX) 0.3-0.1 % ophthalmic ointment (CANCELED) As needed, Starting on Mon06/18/19 at 1131, Until Mon06/18/19 at 1134, Intraprocedure 1131 (Given - Provid er: Federica Davidson MD) triamcinolone acetonide (KENALOG-40) injection (CANCELED) As needed, Starting on Mon06/18/19 at 1115, Until Mon06/18/19 at 1101, Routine, Intraprocedure 1115 (Given - Provid er: Federica Davidson MD - Comment: lot#[id number]) tropicamide (MYDRIACYL) 1 % ophthalmic solution 1 Drop (COMPLETED) 1 Drop, right eye, PRE-OP Q 5 MINUTES, 3 doses, Starting on Mon06/18/19 at 0843, Until Mon06/18/19 at 0907, vitreoretinal surgery, Routine, Preprocedure 0904 (Given - Provid er: Devan Lozada RN)0906 (Given - Provider: Devan Lozada RN)0907 (Given - Provider: Devan Lozada RN) documented in this encounter Orders Medications Ordered That Phil ht Not Have Been Administered Count Last Ordered Date First Ordered Date atropine 0.1 mg/mL syringe 0.5 mg 1 020 glucagon injection 1 mg 1 06/18/2019 lactated ringers (LR) infusion 1 06/18/2019 lidocaine (PF) 10 mg/mL (1 % ) injection 2 mg 1 06/18/2019 naloxone (NARCAN) injection 0.2 mg 1 2019 Transfer Count Last Ordered Date First Orde red Date NON-TEACHING SERVICE 1 06/18/2019 Discharge Count Last Ordered Date First Orde red Date DISCHARGE PATIENT 1 06/18/2019 documented in this encounter Care Teams Healthcare Management Relationship Specialty Start Date End Date Velma Jimenez [address] [facility] [place] [address] PCP - General Internal Medicine - Primary Care 06/18/19 documented as of this encounter
--- OUTSIDE RECORDS SUMMARY | 2024-02-02 12:24 | XMS_ITS | Encounter Summary ---
Author Organization [facility] Address [address] [place] [address] Care Team Providers Care Semi Conductor Assembler Name Role Phone Velma Jimenez Primary Care Provider [phone] Encounter Details Date Type Department Care Team (Late st Contact Info) Description 02/01/2023 Lab Requisition [facility] Pathology & Laboratory Medicine - [facility] [address] [place] [address] Teressa Jane [address] [place] [address] Neoplasm of uncertain behavior of skin Social History Tobacco Use Types Packs/Day Years Used Date Smoking Tobacco: Former Pipe Q uit: 2014 Cigars Quit: 2015 Smokeless Tobacco: Never Comments:only cigar or pipe 1 per day Alcohol Use Standard Drinks/Week Comments Yes 1 (1 standard drink = 0.6 oz pur e alcohol) Interpersonal Safety Answer Date Record ed Physically Hurt Never 10/07/2019 Verbally Threaten Not on file 10/07/2019 Sex and Gender Information Value Date Recorded Sex Assigned at Not on file Legal Sex Male 11:50 EDT Gender Identity Male 06/11/2019 13:52 EDT Sexual Orientation Not on file documented as of this encounter Plan of Treatment Not on file documented as of this encounter Procedures Procedure Name Priority Date/Time Associated Diagnosis Comments SURGICAL PATHOLOGY Today 02/01/2023 14 :35 EST Neoplasm of uncertain behavior of skin documented in this encounter Results * SURGICAL PATHOLOGY (02/01/2023 14:35 EST) Note to Patient The following pathology results have been interpreted by your pathologist and may be available to you before your health provider has had the opportunity to review them. Please allow time for your provider to receive these results and explore management options, if applicable. 02/08/2023 10:04 [facility] Final Diagnosis A. SKIN OF DORSAL HAND, RIGHT RADIAL, SHAVE BIOPSY: - Actinic keratosis. B. 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 C. SKIN OF NASAL DORSUM, SHAVE BIOPSY: - Basal cell carcinoma, superficial and nodular type, present at the peripheral tissue edge. 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 02/08/2023 10:04 [facility] Diagnosis Comment C. Deeper sections have been examined. 02/08/2023 10:04 [facility] Attestation There was significant resident/fellow involvement in the diagnostic evaluation of this case. By the signature below, the attending physician certifies that they have personally conducted a gross and/or microscopic examination of the described specimens and rendered or confirmed the above diagnosis. 02/08/2023 10:04 [facility] at 1004 Clinical History A. 2.5 cm pink plaque; DDx: ISK vs BCC; B. 1.2 cm indurated pink plaque; BCC vs SCC; C. 4 mm pink pearly papule with telangiectasias; DDx: BCC vs other; clinical diagnosis code: D48.5 02/08/2023 10:04 [facility] Gross Description A. Received in formalin labelled with proper patient identification (initials W, A) and A. Right radial dorsal hand is a skin shave of a pale hanson white papule that measures 0.8 x 0.5 cm. The margin is inked blue, the specimen is bisected and entirely submitted in A1. B. Received in formalin labelled with proper patient identification (initials W, A) and B. Left superior preauricular... is a skin shave of a white papule that measures 0.9 x 0.7 x 0.2 cm that has an off center pale hanson indurated area that measures 0.5 x 0.3 cm. The margin is inked blue, the specimen is trisected and entirely submitted in B1. C. Received in formalin labelled with proper patient identification (initials W, A) and C. Nasal dorsum is a skin shave of a white pearly papule that measures 0.5 x 0.4 x 0.1 cm. The margin is inked blue, the specimen is bisected and entirely submitted in C 1. EM ADHIKARI(ASCP) 02/02/2023 9:56 02/08/2023 10:04 [facility] Resident/Christophre w: Rupa Michaels MD 02/08/2023 10:04 [facility] Performing Lab [facility] 02/08/2023 10:04 [facility] Scanned Images 02/08/2023 10:04 [facility] Tissue SPECIMEN FROM SKIN / Unknown 02/01/2023 14:35 EST 02/01/2023 23:31 EST Tissue specimen (specimen) SPECIMEN FROM SKIN / Unknown 02/01/2023 14:35 EST 02/01/2023 23:31 EST Tissue specimen (specimen) SPECIMEN FROM SKIN / Unknown 02/01/2023 14:35 EST 02/01/2023 23:31 EST Teressa Jane PATHOLOGY ORDERABLES Final Resul t [facility] [address] [place] [address] documented in this encounter Visit Diagnoses Diagnosis Neoplasm of uncertain behavior of skin documented in this encounter Care Teams Semi Conductor Assembler Relationship Specialty Start Date End Date Velma Jimenez [address] [place] [address] PCP - General Internal Medicine - Primary Care 06/18/19 documented as of this encounter
--- OUTSIDE RECORDS SUMMARY | 2024-02-02 12:24 | XMS_ITS | Referral Summary ---
Author Organization [facility] Address [address] [place] [address] Care Team Providers Care Radio Time Sales Supervisor Name Role Phone Velma Jimenez Primary Care Provider [phone] Allergies No known active allergies Medications lisinopriL-hydr ochlorothiazide (ZESTORETIC) 20-25 mg per tablet Take 1 Tab by mouth. Active aspirin 81 mg EC tablet Take 81 mg by mouth. Active metFORMIN (GLUCOPHAGE) 500 mg tablet Take 1,000 mg by mouth 2 times daily with breakfast and dinner. Active triamcinolone (KENALOG) 0.1 % cream Apply topically as needed. Active simvastatin (ZOCOR) 20 mg tablet Take 20 mg by mouth daily. Active SITagliptin (JANUVIA) 100 mg tablet Take 100 mg by mouth daily. Active diphenhydrAMINE (BENADRYL) 25 mg capsule Take 25 mg by mouth every 6 hours as needed. Active acetaminophen (TYLENOL) 500 mg tablet Take 500 mg by mouth. Active Multivitamins with Minerals tablet tablet Take 1 Tab by mouth daily. Active Active Problems Problem Noted Date Diagnosed Date Macular hole of right eye 05/21/2019 Overview (05/21/2019): Added automatically from request for surgery [id number] Social History Tobacco Use Types Packs/Day Years Used Date Smoking Tobacco: Former Pipe Q uit: 2015 Cigars Quit: 2015 Smokeless Tobacco: Never Comments:only [...] 13:52 EDT Sexual Orientation Not on file Last Filed Vital Signs Vital Sign Reading Time Taken Comments Blood Pressure 147/83 06/18/2019 1215 EDT Pulse - - Temperature 36 ??C (96.8 ??F) 06/18/2019 1215 EDT Respiratory Rate 19 06/18/2019 1215 EDT Oxygen Saturation 98% 06/18/2019 1215 EDT Inhaled Oxygen Concentration - - Weight 93.6 kg (206 lb 5.6 oz) 06/18/2019 0819 E DT Height 170.2 cm (5' 7) 06/11/2019 0939 EDT Body Mass Index 32.32 06/11/2019 0939 EDT Plan of Treatment Not on file Insurance MEDICAID [place] [employer] MEDICARE Advance Directives For more information, please contact: [phone] * Full Code (Latest Code Status on File) Date Activated Date Inactivated Comments 06/18/2019 8:19 06/18/2019 15:20 Question Answer Comments Reason for decision includes: Full code consistent with overall plan of care Who participated in the discussion? Not Discusse d Care Teams Radio Time Sales Supervisor Relationship Specialty Start Date End Date Velma Jimenez [address] [place] [address] PCP - General Internal Medicine - Primary Care 06/18/19
--- OUTSIDE RECORDS SUMMARY | 2024-02-02 12:24 | XMS_ITS | Encounter Summary ---
Author Organization [facility] Address [address] [place] [address] Care Team Providers Care Workforce Consultant Name Role Phone Velma Jimenez Primary Care Provider [phone] Encounter Details Date Type Department Care Team (Late st Contact Info) Description 06/20/2019 Prep for Procedure SVC [facility] [address] [place], [place] [id number] Federica Davidson MD [address] [place] [phone] Social History Tobacco Use Types Packs/Day Years [...] Diagnoses Not on filedocumented in this encounter Care Teams Workforce Consultant Relationship Specialty Start Date End Date Velma Jimenez [address] [place] [id number] PCP - General Internal Medicine - Primary Care 06/18/19 documented as of this encounter
--- OUTSIDE RECORDS SUMMARY | 2024-02-02 12:24 | XMS_ITS | Encounter Summary ---
Author Organization [facility] Address [address] [place] [address] Care Team Providers Care Threshing Department Supervisor Name Role Phone Unavailable Primary Care Provider Unavailabl e Encounter Details Date Type Department Care Team (Late st Contact Info) Description 05/15/2019 Prep for Procedure SVC [facility] [address] [place], [place] [address] Federica Davidson MD [address] [place] [phone] Social History Tobacco Use Types Packs/Day Years Used Date Smoking Tobacco: Never Assessed Sex and Gender Information Value Date Recorded Sex Assigned at Not on file Legal Sex Male 11:50 EDT Gender Identity Male 06/11/2019 13:52 EDT Sexual Orientation Not on file documented as of this encounter H&P Notes * Federica Davidson MD - 05/15/2019 1218 EDT preop documented in this encounter Plan of Treatment Not on file documented as of this encounter Visit Diagnoses Not on filedocumented in this encounter Orders Case Request Count Last Ordered Date First Orde red Date CASE REQUEST OPERATING ROOM 1 05/15/2019 documented in this encounter
--- OUTSIDE RECORDS SUMMARY | 2024-02-02 12:24 | XMS_ITS | Encounter Summary ---
Author Organization [facility] Address [address] [place] [address] Care Team Providers Care Brake Machine Operator Name Role Phone Velma Jimenez Primary Care Provider [phone] Encounter Details Date Type Department Care Team (Late st Contact Info) Description 06/28/2019 Lab Requisition [facility] Pathology & Laboratory Medicine - [facility] [address] [place] [address] Unknown, Provider, MD Social History Tobacco Use Types Packs/Day Years [...] Procedure Name Priority Date/Time Associated Diagnosis Comments ZZCOVID-19 TEST [facility] PCR Today 06/28/2019 9:29 EDT COVID-19 TESTING Routine 06/28/2019 9:29 EDT documented in this encounter Results * COVID-19 TEST [facility] PCR (06/28/2019 9:29 EDT) Swab ENTIRE NASOPHARYNX / Unknown 06/28/2019 9:29 EDT 06/28/2019 15:32 EDT us Provider Unknown MICROBIOLOGY - GENERAL ORDER VITA Final Result [facility] [address] [place] [address] * COVID-19 TESTING (06/28/2019 9:29 EDT) COVID-19 rt-PCR Result Negative Negative 06/29/2019 13:52 EDT [facility] Comment: Negative results do not preclude 2019-nCoV infection and should not be used as the sole basis for treatment or other patient management decisions. Negative results must be combined with clinical observations, patient history, and epidemiological information. This test has not been FDA cleared or approved. This test has been internally validated, but independent review and determination of emergency use authorization ??(EUA) by the FDA is pending. Performed on the [facility] Fast Performing Lab [facility] 06/29/2019 13:52 EDT [facility] Swab ENTIRE NASOPHARYNX / Unknown 06/28/2019 9:29 EDT 06/28/2019 15:32 EDT us Provider Unknown MICROBIOLOGY - GENERAL ORDER VITA Final Result Performing Organization Address City/State/[facility] Co de Phone Number [facility] [address] [place] [address] documented in this encounter Visit Diagnoses Not on filedocumented in this encounter Care Teams Brake Machine Operator Relationship Specialty Start Date End Date Velma Jimenez [address] [place] [address] PCP - General Internal Medicine - Primary Care 06/18/19 documented as of this encounter
--- OUTSIDE RECORDS SUMMARY | 2024-02-02 12:24 | XMS_ITS | Encounter Summary ---
Author Organization [facility] Address [address] [place] [address] Care Team Providers Care Service Desk Lead Name Role Phone Velma Jimenez Primary Care Provider [phone] Encounter Details Date Type Department Care Team (Late st Contact Info) Description 07/12/2023 Lab Requisition [facility] Pathology & Laboratory Medicine - [facility] [address] [place] [address] Teressa Jane [address] [place] [address] Neoplasm of uncertain behavior of [...] Date/Time Associated Diagnosis Comments SURGICAL PATHOLOGY Today 07/12/2023 14 :55 EDT Neoplasm of uncertain behavior of skin documented in this encounter Results * SURGICAL PATHOLOGY (07/12/2023 14:55 EDT) Note to Patient The following pathology results have been interpreted by your pathologist and may be available to you before your health provider has had the opportunity to review them. Please allow time for your provider to receive these results and explore management options, if applicable. 07/14/2023 10:02 [facility] Final Diagnosis A. SKIN OF CHEEK, LEFT SUPERIOR CENTRAL MALAR, SHAVE BIOPSY: - Basal cell carcinoma, infiltrative type. - Basal cell carcinoma present at peripheral and deep tissue edges. 07/14/2023 10:02 [facility] Attestation By the signature below, the attending physician certifies that they have 1) personally conducted a gross and/or microscopic examination of the described specimen(s), and/or personally interpreted the results of laboratory testing of the described specimen(s), and 2) personally rendered or confirmed the above diagnosis. 07/14/2023 10:02 [facility] at 1002 Microscopic Description Emanating from the epidermis and extending into the dermis are irregularly shaped islands and cords of atypical basal cells. Many of the islands are small and angulate. The basal cells have scant cytoplasm and round dark nuclei. Mitotic figures and apoptotic bodies are evident. Some nuclei at the periphery of some of the larger islands have a palisaded arrangement. There is fibroplasia and myxoid change of the stroma with cleft formation between some of the islands and stroma. 07/14/2023 10:02 [facility] Clinical History 0.8 mm pink pearly papule; Ddx: Bcc vs other; clinical diagnosis code: D48.5 07/14/2023 10:02 [facility] Gross Description A. Received in formalin labelled with proper patient identification (initials W, A) and left superior central malar...* is a shave biopsy of an irregular pearly hanson papule (0.6 x 0.5 x 0.1 cm). The margin is inked blue, the specimen is bisected and entirely submitted in A1. Rea Quinn 07/13/2023 8:47 07/14/2023 10:02 [facility] Performing Lab [facility] 07/14/2023 10:02 [facility] Scanned Images 07/14/2023 10:02 [facility] Tissue SPECIMEN FROM SKIN / Unknown 07/12/2023 14:55 EDT 07/12/2023 22:51 EDT us Teressa Jane PATHOLOGY ORDERABLES Final Resul t [facility] [address] [place], [place] [id number] documented in this encounter Visit Diagnoses Diagnosis Neoplasm of uncertain behavior of skin documented in this encounter Care Teams Service Desk Lead Relationship Specialty Start Date End Date Velma Jimenez [address] [place] [address] PCP - General Internal Medicine - Primary Care 06/18/19 documented as of this encounter
--- OUTSIDE RECORDS SUMMARY | 2024-02-02 12:24 | XMS_ITS | Encounter Summary ---
Author Organization [facility] Address [address] [place] [address] Care Team Providers Care Conference Services Coordinator Name Role Phone Velma Jimenez Primary Care Provider [phone] Encounter Details Date Type Department Care Team (Latest Contact Info) Description 06/18/2019 7:35 EDT - 06/18/2019 13:10 EDT Hospital Encounter [facility] OR [address] [place] [address] Federica Davidson MD [address] [place] [phone] Discharge Disposition: Home or Self Care Social History Tobacco Use Types Packs/Day Years [...] and/or Advil (ibuprofen) or other similar non-prescription, qftk-onl-gjgsayr medications in doses as noted on manufacturers' [...] about use of these medications, call [facility] at [phone]. ??? Please maintain strict post-operative face-down (i.e., [...] not exercise. ??? Follow-up tomorrow at [facility], [address] [place] [address], 2nd floor, [place], at 9:00AM . (That location is up the block from [employer] at the corner of [facility] [address]] and [facility], across the street from [place], and next door to [facility].) At that appointment, your surgeon and the [facility] staff will review post-operative instructions [...] documented in this encounter Nursing Notes * Ricardo Lei RN - 06/18/2019 0737 EDT COVID 19 Screening Perioperative PreOp Surgical Waiting Area Screening: Patient and Family will be screened at designated points of entry to [facility] Patient and Family will be screened again [...] care team is aware ? Notify PreOp Panelboard Operator (TL) ??? Deemed high risk for being [...] surgeon consult No children <16 yo in [facility]. documented in this encounter OR Notes * OR Surgeon - Federica Davidson MD - 06/18/2019 0000 EDT OPERATIVE REPORT SERVICE DATE: 06/18/2019 PREOPERATIVE DIAGNOSIS: Macular hole, right eye. POSTOPERATIVE DIAGNOSIS: Macular hole, right eye. PROCEDURE: A 25-gauge pars plana vitrectomy, membrane peel, air-fluid exchange, C3F8 gas injection,right eye. ANESTHESIA: Retrobulbar anesthesia, monitored anesthesia care, right eye. SURGEON: Federica Davidson MD CORRECTIVE THERAPY AIDE: JAI Vo INDICATIONS: The patient had a history of [...] AM / Federica Davidson MD ln Confirmation: [id number] Dictation ID: [id number] documented in this encounter Miscellaneous Notes * Brief Op Note - Federica Davidson MD - 06/18/2019 0918 EDT Date: 06/18/2019 Brief Op Note Pre-op Diagnosis(es): macular hole right eye Post-op Diagnosis(es): macular hole right eye Procedure(s): 25g pars plana vitrectomy, membrane peeling, C3F8 gas tamponade, right eye Surgeon: Federica Davidson MD Sheet Metal Lay Out Worker: Erin Lees Anesthesia: general endotracheal intubation IV [...] 70 - 100 mg/dL 06/18/2019 11:[address] [facility] certified executive chef ID [id number] 06/18/2019 11:[address] [facility] HN LAB POC COMMENT (GLUCOSE) Test Performed by Nursing Services 06/18/2019 11:[address] [facility] Blood CAPILLARY BLOOD / Unknown 06/18/2019 11:36 EDT 06/18/2019 11:36 EDT Tina Avelar MD POINT OF CARE TEST ORDERABL ES Final Result [facility] [address] [place] [id number] * (ABNORMAL) POCT GLUCOSE, INTERFACED (06/18/2019 8:26 EDT) Glucose, POC 188(H) 70 - 100 mg/dL 06/19/2019 5:[address] [facility] certified executive chef ID [id number] 06/19/2019 5:[address] [facility] HN LAB POC COMMENT (GLUCOSE) Test Performed by Nursing Services 06/19/2019 5:[address] [facility] Blood CAPILLARY BLOOD / Unknown 06/18/2019 8:26 EDT 06/19/2019 5:48 EDT us Federica Davidson MD POINT OF CARE TEST ORDERA BLES Final Result [facility] [address] [place] [address] * ECG REPORT - SCANNED (06/06/2019 14:39 EDT) 06/06/2019 14:3 9 EDT us Scan 2 Grapple Skidder Operator PROCEDURE/MINOR SURGICAL OR DERABLES Final Result [...] Drop Given 06/18/2019 8:57 EDT 1 Drop dextrose 50 % solution 12.5 g 12.5 [...] 1520, peripheral intravenous catheter placement, Routine, Preprocedure naloxone (NARCAN) injection 0.2 mg 0.2 mg, [...] Drop Given 06/18/2019 9:12 EDT 1 Drop tropicamide (MYDRIACYL) 1 % ophthalmic solution 1 [...] infusion 30 mL/hr, intravenous, CONTINUOUS, Starting on 06/18/19 at 0845, Until 06/18/19 at 1520, Routine, Preprocedure 0839 (New Bag - Prov ider: Devan Lozada RN)1049 (Continued by Anesthesia - Provider: Brandon Reyna APRN)1134 (Anesthesia Volume Adjustment - Provider: Brandon Reyna APRN) lactated ringers (LR) infusion at 75 mL/hr, intravenous, CONTINUOUS, Starting on e 06/18/19 at 1145, Until 06/18/19 at 1520, Routine, Recovery (only) 1144 (Continued Infu erich - Provider: Brian Velazquez RN)1215 (Completed - Provider: Brian Velazquez RN) PRN Medication Order 06/16/2019 06/17/2019 06/18/2019 acetaminophen (TYLENOL) tablet 650 mg (COMPLETED) 650 mg, oral, ONCE PRN, 1 dose, Starting on e 06/18/19 at 1051, Until 06/18/19 at 1204, Pain, Routine 1204 (Given - Provid er: Brian Velazquez RN) atropine 0.1 mg/mL syringe 0.5 mg 0.5 mg, intravenous, PRN, Starting on e 06/18/19 at 1122, Until 06/18/19 at 1520, Symptomatic HR < 50, Routine, Recovery (only) atropine 1 % ophthalmic solution 1 Drop (COMPLETED) 1 Drop, right eye, PRE-OP Q 5 MINUTES, 3 doses, Starting on 06/18/19 at 0843, Until 06/18/19 at 0859, vitreoretinal surgery, Routine, Preprocedure 0857 (Given - Provid er: Devan Lozada RN)0858 (Given - Provider: Devan Lozada, SERG)0859 (Given - Provider: Devan Lozada RN) atropine 1 % ophthalmic solution (CANCELED) As needed, Starting on 06/18/19 at 1130, Until 06/18/19 at 1134, Routine, Intraprocedure 1130 (Given - Provid er: Federica Davidson MD) balanced salts (BSS) ophthalmic solution (CANCELED) As needed, Starting on Mon06/18/19 at 1004, Until Mon06/18/19 at 1009, Routine, Intraprocedure 1004 (Given - Provid er: Federica Davidson MD - Comment: BSS1: [id number] BSS2: [id number] 50% Dextrose, 3 mL: [id number]) bupivacaine (PF) (MARCAINE) 0.75 % (7.5 mg/mL) injection (CANCELED) As needed, Starting on Mon06/18/19 at 1042, Until Mon06/18/19 at 1051, Routine, Intraprocedure 1042 (Given - Provid er: Federica Davidson MD) ceFAZolin (ANCEF) injection (CANCELED) As needed, Starting on Mon06/18/19 at 1115, Until Mon06/18/19 at 1101, Routine, Intraprocedure 1115 (Given - Provid er: Federica Davidson MD - Comment: lot#[id number]) dextrose 50 % solution 12.5 g 12.5 g, intravenous, PRN, Starting on Mon06/18/19 at 0950, Until Mon06/18/19 at 1520, Low Blood Sugar, Routine, Preprocedure 1045 (Given - Provid er: Federica Davidson MD - Comment: added to BSS) glucagon injection 1 mg 1 mg, intramuscular, PRN, Starting on Mon06/18/19 at 0950, Until e 06/18/19 at 1520, Low Blood Sugar, Routine, Preprocedure lidocaine (PF) 10 mg/mL (1 %) injection 2 mg 2 mg, intradermal, PRN, 4 doses, Starting on Mon06/18/19 at 0819, Until Tu06/18/19 at 1520, peripheral intravenous catheter placement, Routine, [...] Provid er: Federica Davidson MD - Comment: lot#[id number]) tobramycin-dexamethasone (TOBRADEX) 0.3-0.1 % ophthalmic ointment (CANCELED) As needed, Starting on Mon06/18/19 at 1131, Until Mon06/18/19 at 1134, Intraprocedure 1131 (Given - Provid er: Fedreica Davidson MD) triamcinolone acetonide (KENALOG-40) injection (CANCELED) As needed, Starting on Mon06/18/19 at 1115, Until Mon06/18/19 at 1101, Routine, Intraprocedure 1115 (Given - Provid er: Federica Davidson MD - Comment: lot#[id number]) tropicamide (MYDRIACYL) 1 % ophthalmic solution 1 Drop (COMPLETED) 1 Drop, right eye, PRE-OP Q 5 MINUTES, 3 doses, Starting on Mon06/18/19 at 0843, Until Mon06/18/19 at 0907, vitreoretinal surgery, Routine, Preprocedure 0904 (Given - Provid er: Devan Lozada RN)09 (Given - Provider: Devan Lozada RN)09 (Given - Provider: Devan Lozada RN) documented in this encounter Orders Medications Ordered That Phil ht Not Have Been Administered Count Last Ordered Date First Ordered Date atropine 0.1 mg/mL syringe 0.5 mg 1 020 atropine 1 % ophthalmic solution 1 06/18/19 20 balanced salts (BSS) ophthalmic solution 1 06/18/2019 bupivacaine (PF) (MARCAINE) 0.75 % (7.5 mg/mL) injection 1 06/18/2019 ceFAZolin (ANCEF) injection 1 06/18/2019 dextrose 50 % solution 12.5 g 1 06/18/2019 glucagon injection 1 mg 1 06/18/2019 lactated ringers (LR) infusion 1 06/18/2019 lidocaine (PF) 10 mg/mL (1 % ) injection 2 mg 1 06/18/2019 lidocaine (PF) 20 mg/mL (2 %) injection 1 0 06/18/2019 methylPREDNISolone sod suc(P F) (SOLU-MEDROL) injection 1 06/18/2019 naloxone (NARCAN) injection 0.2 mg 1 2019 tobramycin (NEBCIN) injection 1 06/18/2019 tobramycin-dexamethasone (TO BRADEX) 0.3-0.1 % ophthalmic ointment 1 06/18/2019 triamcinolone acetonide (MARGARITO ALOG-40) injection 1 06/18/2019 Transfer Count Last Ordered Date First Orde red Date NON-TEACHING SERVICE 1 06/18/2019 Discharge Count Last Ordered Date First Orde red Date DISCHARGE PATIENT 1 06/18/2019 documented in this encounter Care Teams Conference Services Coordinator Relationship Specialty Start Date End Date Velma Jimenez [address] [facility] [place] [address] PCP - General Internal Medicine - Primary Care 06/18/19 documented as of this encounter
--- OUTSIDE RECORDS SUMMARY | 2024-02-02 12:24 | XMS_ITS | Clinical Summary ---
Author Organization [facility] Address [address] [place] [address] Care Team Providers Care Embedder Name Role Phone Velma Jimenez Primary Care Provider [phone] Allergies No known active allergies Medications lisinopriL-hydr [...] (05/21/2019): Added automatically from request for surgery [id number] Surgical History Surgery Date Site/Laterality Comments DENTAL SURGERY 03/06/2004 - 03/05/2005 w/ [place] Medical History Medical History Date Comments Hypertension tx w/ meds Hyperlipidemia tx w/ meds Exercise involving walking 1-2 m ile daily History of general anesthesia Pain occas right hip pain Diabetes mellitus, type 2 ([facility]) 2002 tx w/ oral meds .last A1c was 6.9 in 03/2019 Social History Tobacco Use Types Packs/Day Years [...] 13:52 EDT Sexual Orientation Not on file Obstetrics History Last Filed Vital Signs Vital Sign Reading [...] 32.32 06/11/2019 0939 EDT Plan of Treatment Health Maintenance Due Date Last Done Comments Hepatitis C Screen 1945 Fall Risk Screening 11/12/2011 RSV Immunization ( o r 60+ Years) (1 - 1-dose 75+ series) 2021 COVID-19 Vaccine ( - 2023- season) 2023 Insurance MEDICAID [place] [employer] MEDICARE Advance Directives For more information, please contact: [phone] * Full Code (Latest Code Status on File) Date Activated Date Inactivated Comments 06/18/2019 8:19 06/18/2019 15:20 Question Answer Comments Reason for decision includes: Full code consistent with overall plan of care Who participated in the discussion? Not Discusse d Care Teams Embedder Relationship Specialty Start Date End Date Velma Jimenez [address] [place] [address] PCP - General Internal Medicine - Primary Care 06/18/19
--- OUTSIDE RECORDS SUMMARY | 2024-02-02 12:24 | XMS_ITS | Encounter Summary ---
Author Organization [facility] Address [address] [place] [address] Care Team Providers Care Hoop Bending Machine Operator Name Role Phone Velma Jimenez Primary Care Provider [phone] Encounter Details Date Type Department Care Team (Late st Contact Info) Description 04/06/2023 Lab Requisition [facility] Pathology & Laboratory Medicine - [address] [address] Prem Turpin PA [address] [place] [address], [address] [place] [address] Neoplasm of uncertain behavior of skin Social [...] Date/Time Associated Diagnosis Comments SURGICAL PATHOLOGY Today 04/06/2023 11 :31 EST Neoplasm of uncertain behavior of skin documented in this encounter Results * SURGICAL PATHOLOGY (04/06/2023 11:31 EST) Note to Patient The following pathology results have been interpreted by your pathologist and may be available to you before your health provider has had the opportunity to review them. Please allow time for your provider to receive these results and explore management options, if applicable. 04/07/2023 12:13 [facility] Final Diagnosis A. SKIN OF HAND, RIGHT RADIAL DORSAL, SHAVE BIOPSY: - Hypertrophic actinic keratosis, inflamed. 04/07/2023 12:13 [facility] Attestation By the signature below, the attending physician certifies that they have 1) personally conducted a gross and/or microscopic examination of the described specimen(s), and/or personally interpreted the results of laboratory testing of the described specimen(s), and 2) personally rendered or confirmed the above diagnosis. 04/07/2023 12:13 [facility] at 1213 Clinical History DDx: Squamous cell carcinoma vs actinic keratosis; Notes: See previous biopsy accession [id number]; clinical diagnosis code: D48.5 04/07/2023 12:13 [facility] Gross Description A. Received in formalin labelled with proper patient identification (initials W, A) and right radial dorsal hand is a waxy patel-white skin shave, 0.8 x 0.6 x 0.1 cm. The margin is inked. Trisected and entirely submitted in A1. EM GONZALEZ(ASCP) 04/06/2023 15:05 04/07/2023 12:13 [facility] Performing Lab [facility] 04/07/2023 12:13 [facility] Scanned Images 04/07/2023 12:13 [facility] Tissue SPECIMEN FROM SKIN / Unknown 04/06/2023 11:31 EST 04/06/2023 14:42 EST us Prem [facility] ORDERABLES Final Res ult [facility] [address] [place] [address] documented in this encounter Visit Diagnoses Diagnosis Neoplasm of uncertain behavior of skin documented in this encounter Care Teams Hoop Bending Machine Operator Relationship Specialty Start Date End Date Velma Jimenez [address] [place] [address] PCP - General Internal Medicine - Primary Care 06/18/19 documented as of this encounter
--- OUTSIDE RECORDS SUMMARY | 2024-02-02 12:24 | XMS_ITS | Encounter Summary ---
Author Organization [facility] Address [address] [place] [address] Care Team Providers Care Supervisor Frame Sample And Pattern Name Role Phone Velma Jimenez Primary Care Provider Encounter Details Date Type Department Care Team (Late st Contact Info) Description 06/29/2021 Lab Requisition [facility] Pathology & Laboratory Medicine - [facility] [address] [place], [place] [address] Outr Resulting Lab, Provider Social History Tobacco Use Types Packs/Day Years [...] Procedure Name Priority Date/Time Associated Diagnosis Comments PSA TOTAL, DIAGNOSTIC Routine 06/29/2021 8:00 EDT documented in this encounter Results * PSA TOTAL, DIAGNOSTIC (06/29/2021 8:00 EDT) PSA 0.7 <=6.5 ng/mL 06/30/2021 20:06 EDT [facility] Blood VENOUS BLOOD / Unknown 06/29/2021 8:00 EDT 06/30/2021 17:18 EDT Narrative [facility] - 06/30/2021 20:06 EDT NOTE: Serum PSA concentration should not be interpreted as absolute evidence for the presence or absence of malignant disease. Assayed on Siemens ADVIA [employer] XPT using chemiluminescent technology.??Values obtained by using different assay methods cannot be used interchangeably. us Provider Outr Resulting Lab CHEMISTRY & BLOOD GA S ORDERABLES Final Result [facility] [address] [place] [address] documented in this encounter Visit Diagnoses Not on filedocumented in this encounter Care Teams Supervisor Frame Sample And Pattern Relationship Specialty Start Date End Date Velma Jimenez [address] [place] [address] PCP - General Internal Medicine - Primary Care 06/18/19 documented as of this encounter
--- OUTSIDE RECORDS SUMMARY | 2024-02-02 12:25 | XMS_ITS ---
Author Organization Unknown Address [address] [place] [phone] Phone Care Team Providers Care Heat Treater Head Name Role Phone GRETA Arora Attending Unavailable Social History Type Status Start Date End Date Code Code Syst em Smoking History Former smoker 11/04/[address] Sex Male Medications Medication Start Date End Date Route Frequency Dose Code Code System Medication Instructions Home Meds Aspirin 81MG Oral Tablet, Enteric Coated 11/14/2023 Unknown ORAL DAILY 81 MILLIGRAMS 828710 RxNorm TAKE 81 MILLIGRAMS ORAL DAILY Atorvastatin Calcium 40MG Oral Tablet 11/14/2023 Unknown ORAL DAILY 40 MILLIGRAMS 310296 RxNorm TAKE 40 MILLIGRAMS ORAL DAILY Benadryl Allergy 25MG Oral Tablet 11/14/2023 Unknown ORAL NEEDED 25 MILLIGRAMS 4684037 RxNorm TAKE 25 MILLIGRAMS ORAL NEEDED Cetirizine HCl 10MG Oral Tablet 11/14/2023 Unknown ORAL NEEDED DAILY 10 MILLIGRAMS 8168838 RxNorm TAKE 10 MILLIGRAMS ORAL NEEDED DAILY Jardiance 25MG Oral Tablet 11/14/2023 Unknown ORAL DAILY 25 MILLIGRAMS 6021167 RxNorm TAKE 25 MILLIGRAMS ORAL DAILY Ketoconazole 2% Topical application Shampoo 11/14/2023 Unknown TOPICAL APPLICAT ION THREE TIMES A WEEK 1 unit(s) 761932 RxNorm 1 EACH TOPICAL APPLICATION THREE TIMES A WEEK Lisinopril 20MG Oral Tablet 11/14/2023 Unknown ORAL DAILY 20 MILLIGRAMS 438510 RxNorm TAKE 20 MILLIGRAMS ORAL DAILY Multivitamin Oral Tablet 11/14/2023 Unknown ORAL DAILY 1 unit(s) RxNorm TAKE 1 EACH ORAL DAILY Ozempic 0.25 MG or 0.5 MG Doses 2 MG/3 ML Subcutaneous Solution 11/14/2023 Unknown SUBCUTAN EOUS WEEKLY 1 unit(s) [id number] RxNorm INJECT 1 EACH SUBCUTANEOUS WEEKLY Triamcinolon e Acetonide 0.1% Topical application Cream 11/14/2023 Unknown TOPICAL APPLICAT ION TWICE A DAY 1 unit(s) 9544120 RxNorm 1 EACH TOPICAL APPLICATION TWICE A DAY Tylenol Extra Strength 500MG Oral Tablet 11/14/2023 Unknown ORAL NEEDED 500 MILLIGRAMS 754270 RxNorm TAKE 500 MILLIGRAMS ORAL NEEDED metFORMIN HCl 1000MG Oral Tablet 11/14/2023 Unknown ORAL TWICE A DAY 1000 MILLIGRAMS 014844 RxNorm TAKE 1000 MILLIGRAMS ORAL TWICE A DAY Augmentin 875MG-125MG Oral Tablet 11/14/2023 Unknown ORAL TWICE A DAY 1 TABLET 469319 RxNorm TAKE 1 TABLET ORAL TWICE A DAY Assessment You had the following problems:CELLULITIS OF HAND Hospital Discharge Instructions Should you have any questions prior to discharge, please contact a member of your healthcare team. If you have left the hospital and have any questions, please contact your primary care physician. Reason For Referral No Data Found Problems Problem Start Date Resolved Date Status Code Code System CELLULITIS OF HAND active 13326049 S NOMED-CT DIABETES 2 11/13/2023 resolved 98513769 SNOMED-C T DIABETIC NEUROPATHY 11/13/2023 resolved 767105075 SNOMED-CT PAIN IN RIGHT HIP 11/13/2023 resolved 75780718602 9102 SNOMED-CT PAIN IN KNEE 11/13/2023 resolved 9144311865 SNOME D-CT CARPAL TUNNEL 11/13/2023 resolved 77667143 SNOME D-CT HYPERTENSION 11/13/2023 resolved 59899989 SNOMED -CT BASAL CELL CARCINOMA 11/13/2023 resolved 07243918 7 SNOMED-CT SQUAMOUS CELL CARCINOMA 11/13/2023 resolved 323075523 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 11/13/2023 resolved [id number] 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
--- OUTSIDE RECORDS SUMMARY | 2024-02-02 12:25 | XMS_ITS ---
Author Organization Unknown Address [address] [place] [phone] Phone Care Team Providers Care Home Restoration Service Cleaner Name Role Phone MANUEL FRAN Registered Nurse Unavailable EDIS Call Registered Nurse Unavailable Unavailable Xwatchlist Unavailable GRETA Arora Attending Unavailable JOAQUÍN [facility] Unavailable FRANCESCO Young Primary Unavailable MARCELA Waterman Secondary Unavailable UNLISTED PROVIDER - REQUESTED Xhandoff Un available Results NOVA GLUCOSE FINGER HEEL CAP ILLARY - Collect Date/Time: 11/14/2023 07:38 [facility] ID: [id number] [address] [place] [address], [id number] LOINC: 21446-9 Test Value Unit Reference Range Code Code System Flag GLUCOSE CAP 107 mg/dL L=70 H=116 28270-1 LOINC CBC W/ DIFFERENTIAL* - Colle ct Date/Time: 11/14/2023 06:15 [facility] ID: [id number] [address] [place] [address], [address] LOINC: 71727-5 Test Value Unit Reference Range Code Code System Flag WBC 7.37 th/cmm L=5.00 H=10.00 6690-2 LOINC NEUT % 80.6 % L=40.0 H=80.0 H LYMPH % 9.9 % L=10.0 H=50.0 L MONO % 6.4 % L=2.0 H=12.0 73615-1 LOINC EOS % 2.3 % L=0.0 H=8.0 BASO % 0.5 % L=0.0 H=3.0 IG % 0.3 % L=0.0 H=1.1 5064-8 LOINC NRBC % 0.0 % L=0.0 H=0.0 42218-2 LOINC NEUT abs count 5.9 th/cmm L=1.6 H=8.4 751-8 LOINC LYMPH abs count 0.7 th/cmm L=1.5 H=4.0 731-0 LOINC L MONO abs count 0.5 th/cmm L=0.2 H=1.0 742-7 LOINC EOS abs count 0.2 th/cmm L=0.0 H=0.5 711-2 LOINC BASO abs count 0.0 th/cmm L=0.0 H=0.2 704-7 LOINC IG abs count 0.0 th/cmm L=0.0 H=0.1 39962-9 LOINC NRBC abs count 0.0 mil/cmm L=0.0 H=0.0 28909-6 LOINC RBC 4.06 mil/cmm L=4.30 H=6.20 789-8 LOINC L HEMOGLOBIN 12.7 gm/dL L=13.0 H=17.0 718-7 LOINC L HEMATOCRIT 39 % L=45 H=52 4544-3 LOINC L MCV 95 fL L=82 H=92 787-2 LOINC H MCH 31.3 pg L=27.0 H=31.0 785-6 LOINC H MCHC 32.9 % L=32.0 H=36.0 786-4 LOINC RDW-SD 49.5 fL L=39.0 H=49.0 788-0 LOINC H PLATELET COUNT 231 th/cmm L=150 H=450 777-3 LOINC MAGNESIUM SERUM* - Collect D ate/Time: 11/14/2023 06:15 [facility] ID: [id number] [address] [place], [place], [address] LOINC: 57354-5 Test Value Unit Reference Range Code Code System Flag MAGNESIUM 1.8 mg/dL L=1.8 H=2.4 11495-6 LOINC BASIC METABOLIC PANEL (BMP) - Collect Date/Time: 11/14/2023 06:15 [facility] ID: [id number] [address] [place] [address], [address] LOINC: 93105-6 Test Value Unit Reference Range Code Code System Flag GLUCOSE 102 mg/dL L=70 H=116 2345-7 LOINC BUN 16 mg/dL L=6 H=25 3094-0 LOINC CREATININE 0.92 mg/dL L=0.67 H=1.17 2160-0 LOINC SODIUM SERUM 141 mmol/L L=136 H=145 2951-2 LOINC POTASSIUM SERUM 3.8 mmol/L L=3.4 H=5.2 2823-3 [facility] CHLORIDE SERUM 102 mmol/L L=96 H=110 2075-0 [facility] CARBON DIOXIDE (CO2) 27 mmol/L L=22 H=34 2028-9 [facility] ANION GAP 12.4 mmol/L 67967-9 [facility] CALCIUM SERUM 9.0 mg/dL L=8.2 H=10.2 44362-0 [facility] AGE 78 years eGFR (non-Afr.Amer.) 80 mL/min 98609-0 [facility] eGFR (Afr-Cambodian) 97 mL/min 45767-4 [facility] COVID FLU RSV GENEXPE RT - Collect Date/Time: 11/13/2023 11:50 [facility] ID: [id number] [address] [place] [address], [id number] LOINC: 91309-6 Test Value Unit Reference Range Code Code System Flag COVID NEGATIVE Normal: Negative 42470-6 [facility] INFLUENZA A DNA NEGATIVE Normal: Negative 73482-3 [facility] IN[facility] B DNA NEGATIVE Normal: Negative 93620-4 [facility] RSV DNA NEGATIVE Normal: Negative 96475-2 [facility] BASIC METABOLIC PANEL (BMP) - Collect Date/Time: 11/13/2023 11:18 [facility] ID: [id number] [address] [place], [place], [address] LOINC: 05233-4 Test Value Unit Reference Range Code Code System Flag GLUCOSE 91 mg/dL L=70 H=116 2345-7 LOINC BUN 20 mg/dL L=6 H=25 3094-0 LOINC CREATININE 1.08 mg/dL L=0.67 H=1.17 2160-0 LOINC SODIUM SERUM 141 mmol/L L=136 H=145 2951-2 LOINC POTASSIUM SERUM 3.9 mmol/L L=3.4 H=5.2 2823-3 LOINC CHLORIDE SERUM 103 mmol/L L=96 H=110 2075-0 LOINC CARBON DIOXIDE (CO2) 27 mmol/L L=22 H=34 2028-9 LOINC ANION GAP 10.7 mmol/L 02152-7 LOINC CALCIUM SERUM 9.0 mg/dL L=8.2 H=10.2 16378-9 LOINC AGE 78 years eGFR (non-Afr.Amer.) 66 mL/min 94016-0 LOINC eGFR (Afr-Cambodian) 80 mL/min 02674-9 LOINC CBC W/ DIFFERENTIAL* - Colle ct Date/Time: 11/13/2023 10:39 [facility] ID: [id number] [address] [place], [place], [address] LOINC: 49178-8 Test Value Unit Reference Range Code Code System Flag WBC 7.48 th/cmm L=5.00 H=10.00 6690-2 LOINC NEUT % 80.9 % L=40.0 H=80.0 H LYMPH % 10.6 % L=10.0 H=50.0 MONO % 6.3 % L=2.0 H=12.0 18780-4 LOINC EOS % 1.3 % L=0.0 H=8.0 BASO % 0.5 % L=0.0 H=3.0 IG % 0.4 % L=0.0 H=1.1 2514-8 LOINC NRBC % 0.0 % L=0.0 H=0.0 19715-1 LOINC NEUT abs count 6.1 th/cmm L=1.6 H=8.4 751-8 LOINC LYMPH abs count 0.8 th/cmm L=1.5 H=4.0 731-0 LOINC L MONO abs count 0.5 th/cmm L=0.2 H=1.0 742-7 LOINC EOS abs count 0.1 th/cmm L=0.0 H=0.5 711-2 LOINC BASO abs count 0.0 th/cmm L=0.0 H=0.2 704-7 LOINC IG abs count 0.0 th/cmm L=0.0 H=0.1 93662-3 LOINC NRBC abs count 0.0 mil/cmm L=0.0 H=0.0 02409-1 LOINC RBC 4.01 mil/cmm L=4.30 H=6.20 789-8 LOINC L HEMOGLOBIN 12.6 gm/dL L=13.0 H=17.0 718-7 LOINC L HEMATOCRIT 38 % L=45 H=52 4544-3 LOINC L MCV 94 fL L=82 H=92 787-2 LOINC H MCH 31.4 pg L=27.0 H=31.0 785-6 LOINC H MCHC 33.5 % L=32.0 H=36.0 786-4 LOINC RDW-SD 50.1 fL L=39.0 H=49.0 788-0 LOINC H PLATELET COUNT 238 th/cmm L=150 H=450 777-3 LOINC SED RATE* - Collect Date/Luis e: 11/13/2023 10:39 [facility] ID: [id number] [address] [place] [address], [address] LOINC: 4537-7 Test Value Unit Reference Range Code Code System Flag SED. RATE 25 mm/hr L=0 H=20 4537-7 LOINC H HEMOGLOBIN A1C* - Collect Da te/Time: 11/13/2023 10:39 [facility] ID: [id number] [address] [place] [address], [address] LOINC: 4548-4 Test Value Unit Reference Range Code Code System Flag Hgb A1c 6.5 % L=3.8 H=5.7 4548-4 LOINC H MEAN BLOOD GLUCOSE 130 mg/dL 51163-8 LOINC C REACTIVE PROTEIN HIGH SENS ITIVITY* - Collect Date/Time: 11/13/2023 10:39 [facility] ID: [id number] [address] [place], [place], [address] LOINC: 12320-6 Test Value Unit Reference Range Code Code System Flag CRP-HIGH SENS. 139.81 mg/L L=0.00 H=3.00 11929-1 LOINC H CRP-HIGH SENS 13.98 mg/dL L=0.00 H=0.30 91882-6 LOINC H Social History Type Status Start Date End Date Code Code Syst em Smoking History Former smoker 11/04/[address] Sex Male Vital Signs Vital Sign Value Unit [place] Value [place] Unit Date/Time Recent/Initial? Code Code System Body Mass Index 31.11 kg/m2 11/13/2023 19:20 Most Recent 86075 -5 LOINC Body Mass Index 31.17 kg/m2 11/13/2023 09:41 Initial 51219 -5 LOINC Systolic Blood Pressure 135 mm[Hg] 11/14/2023 06:59 Most Recent 8480- 6 LOINC Diastolic Blood Pressure 72 mm[Hg] 11/14/2023 06:59 Most Recent 8462- 4 LOINC Systolic Blood Pressure 139 mm[Hg] 11/13/2023 09:41 Initial 8480- 6 LOINC Diastolic Blood Pressure 99 mm[Hg] 11/13/2023 09:41 Initial 8462- 4 LOINC Body Surface Area 2.11 m2 11/13/2023 19:20 Most Recent 3140- 1 LOINC Body Surface Area 2.11 m2 11/13/2023 09:41 Initial 3140- 1 LOINC Height 172.720 0 cm 68.00 in 11/13/2023 19:20 Most Recent 8302- 2 LOINC Height 172.720 0 cm 68.00 in 11/13/2023 09:41 Initial 8302- 2 LOINC O2 Saturation 98 % 2023 06:59 Most Recent 66649 -5 LOINC O2 Saturation 198 % 2023 09:41 Initial 37057 -5 LOINC Pulse 88.0 /min 11/14/2023 06:59 Most Recent 8867- 4 LOINC Pulse 84.0 /min 11/13/2023 09:41 Initial 8867- 4 LOINC Respiration 20 /min 11/14/19 24 06:59 Most Recent 9279- 1 LOINC Respiration 17 /min 11/13/19 24 09:41 Initial 9279- 1 LOINC Temperature 37.0 Shalini 98.6 F 11/14/19 24 06:59 Most Recent 8310- 5 LOINC Temperature 37.2 Shalini 99.0 F 11/13/19 24 09:41 Initial 8310- 5 LOINC Weight 92.80 kg 204.60 lbs 11/13/2023 19:20 Most Recent 17416 -7 LOINC Weight 92.99 kg 205.00 lbs 11/13/2023 09:41 Initial 42399 -7 [facility] Medications Medication Start Date End Date Route Frequency Dose Code Code System Medication Instructions Home Meds Aspirin 81MG Oral Tablet, Enteric Coated 11/14/2023 Unknown ORAL DAILY 81 MILLIGRAMS 004117 RxNorm TAKE 81 MILLIGRAMS ORAL DAILY Atorvastatin Calcium 40MG Oral Tablet 11/14/2023 Unknown ORAL DAILY 40 MILLIGRAMS 929992 RxNorm TAKE 40 MILLIGRAMS ORAL DAILY Benadryl Allergy 25MG Oral Tablet 11/14/2023 Unknown ORAL NEEDED 25 MILLIGRAMS 4386074 RxNorm TAKE 25 MILLIGRAMS ORAL NEEDED Cetirizine HCl 10MG Oral Tablet 11/14/2023 Unknown ORAL NEEDED DAILY 10 MILLIGRAMS 0216556 RxNorm TAKE 10 MILLIGRAMS ORAL NEEDED DAILY Jardiance 25MG Oral Tablet 11/14/2023 Unknown ORAL DAILY 25 MILLIGRAMS 6297887 RxNorm TAKE 25 MILLIGRAMS ORAL DAILY Ketoconazole 2% Topical application Shampoo 11/14/2023 Unknown TOPICAL APPLICAT ION THREE TIMES A WEEK 1 unit(s) 824979 RxNorm 1 EACH TOPICAL APPLICATION THREE TIMES A WEEK Lisinopril 20MG Oral Tablet 11/14/2023 Unknown ORAL DAILY 20 MILLIGRAMS 799773 RxNorm TAKE 20 MILLIGRAMS ORAL DAILY Multivitamin Oral Tablet 11/14/2023 Unknown ORAL DAILY 1 unit(s) RxNorm TAKE 1 EACH ORAL DAILY Ozempic 0.25 MG or 0.5 MG Doses 2 MG/3 ML Subcutaneous Solution 11/14/2023 Unknown SUBCUTAN EOUS WEEKLY 1 unit(s) 2081792 RxNorm INJECT 1 EACH SUBCUTANEOUS WEEKLY Triamcinolon e Acetonide 0.1% Topical application Cream 11/14/2023 Unknown TOPICAL APPLICAT ION TWICE A DAY 1 unit(s) 5820800 RxNorm 1 EACH TOPICAL APPLICATION TWICE A DAY Tylenol Extra Strength 500MG Oral Tablet 11/14/2023 Unknown ORAL NEEDED 500 MILLIGRAMS 621067 RxNorm TAKE 500 MILLIGRAMS ORAL NEEDED metFORMIN HCl 1000MG Oral Tablet 11/14/2023 Unknown ORAL TWICE A DAY 1000 MILLIGRAMS 955518 RxNorm TAKE 1000 MILLIGRAMS ORAL TWICE A DAY Augmentin 875MG-125MG Oral Tablet 11/14/2023 Unknown ORAL TWICE A DAY 1 TABLET 581494 RxNorm TAKE 1 TABLET ORAL TWICE A [...] Code Code System CELLULITIS OF HAND active 79725558 S NOMED-CT DIABETES 2 11/13/2023 resolved 42966257 SNOMED-C T DIABETIC NEUROPATHY 11/13/2023 resolved 189600773 SNOMED-CT PAIN IN RIGHT HIP 11/13/2023 resolved 42924039323 9102 SNOMED-CT PAIN IN KNEE 11/13/2023 resolved 6783313388 SNOME D-CT CARPAL TUNNEL 11/13/2023 resolved 75026987 SNOME D-CT HYPERTENSION 11/13/2023 resolved 91547916 SNOMED -CT BASAL CELL CARCINOMA 11/13/2023 resolved 02580802 7 SNOMED-CT SQUAMOUS CELL CARCINOMA 11/13/2023 resolved 824006752 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 11/13/2023 resolved 11822508473523638 SNOMED-CT HEMANGIOMA 11/13/2023 resolved 008215669 SNOMED-C T ACTINIC KERATOSIS 11/13/2023 resolved 169268057 S NOMED-CT HYPERLIPIDEMIA 11/13/2023 resolved 87298716 SNOM ED-CT Allergies and Adverse Reactions Allergy Substance Reaction Severity Start Date Concern Status Co de Code System No Known Drug Allergies Active 153960755 SNOMED-CT Plan of Treatment CT CHEST W/O CONTRAST 06/29/2023 US ABDOMEN LIMITED 1 ORGAN 06/29/2023 Plan # LEFT hand cellulitis Elevation of left hand Serial laboratory monitoring Unasyn IV Consider orthopedic consult Inflammatory markers ordered Encounters Encounter Diagnosis Start Date Code Code Sys tem Cellulitis of right upper limb 11/13/2023 SNOMED-CT Personal Care Team Section Performer Name Performer Role Active Date Inactive Da te Discharge Summary Notes [facility] 11/14/2023 17:41 Patient Name: MITUL GONZALEZ Date of Service: 11/14/2023 17:37 Discharge Date: 11/14/2023 Admission Diagnosis: Cat bite Right hand Right hand cellulitis Discharge Diagnosis: Infected cat bite Right hand Right hand cellulitis : Primary Care Physician: FRANCESCO Young Consulting Physician(s): Procedures: Recommendations: Patient to follow-up with his primary care provider Dr. Hernandez Discharge Medications: Discharge Meds List Aspirin 81MG Oral Tablet, Enteric Coated, TAKE 81 MILLIGRAMS ORAL DAILY Atorvastatin Calcium 40MG Oral Tablet, TAKE 40 MILLIGRAMS ORAL DAILY Augmentin 875MG-125MG Oral Tablet, TAKE 1 TABLET ORAL TWICE A DAY Benadryl Allergy 25MG Oral Tablet, TAKE 25 MILLIGRAMS ORAL NEEDED Cetirizine HCl 10MG Oral Tablet, TAKE 10 MILLIGRAMS ORAL NEEDED DAILY Jardiance 25MG Oral Tablet, TAKE 25 MILLIGRAMS ORAL DAILY Ketoconazole 2% Topical application Shampoo, 1 EACH TOPICAL APPLICATION THREE TIMES A WEEK Lisinopril 20MG Oral Tablet, TAKE 20 MILLIGRAMS ORAL DAILY metFORMIN HCl 1000MG Oral Tablet, TAKE 1000 MILLIGRAMS ORAL TWICE A DAY Multivitamin Oral Tablet, TAKE 1 EACH ORAL DAILY Ozempic 0.25 MG or 0.5 MG Doses 2 MG/3 ML Subcutaneous Solution, INJECT 1 EACH SUBCUTANEOUS WEEKLY Triamcinolone Acetonide 0.1% Topical application Cream, 1 EACH TOPICAL APPLICATION TWICE A DAY Tylenol Extra Strength 500MG Oral Tablet, TAKE 500 MILLIGRAMS ORAL NEEDED History of Present Illness 78-year-old male patient with PMH of T2DM, HTN, presents to the emergency department today with 3-day history of left hand redness, swelling, pain and warmth after he was bitten and scratched by a cat. He states it has been worsening over the last couple of days and has no discharge. He complains of feeling feverish and has taken Tylenol for this. In the emergency department vital signs 139/99, heart rate 84, respiratory rate 17, temperature 37.2 with O2 saturation 98% on room air. His left hand has erythema with soft tissue swelling and scabs over the bite/scratch pack and areas without fluctuance. Laboratories WNL with negative COVID/flu/RSV. Patient received 3 g Unasyn and will be admitted to the hospital service for further care and evaluation. Hospital Course Patient was referred for observation. He was continued on Unasyn. By the following morning the redness, pain and swelling was significantly improved in his hand. He has been afebrile. White blood cell count has remained normal at 7.40. C-reactive protein was markedly elevated yesterday at 139.8. He is felt to be stable for discharge home on oral antibiotics. Labs last 72 hours Test Results Units Reference Range Collected GLUCOSE 102 mg/dL L=70 H=116 11/14/2023 06:15 BUN 16 mg/dL L=6 H=25 11/14/2023 06:15 CREATININE 0.92 mg/dL L=0.67 H=1.17 11/14/2023 06:15 SODIUM SERUM 141 mmol/L L=136 H=145 11/14/2023 06:15 POTASSIUM SERUM 3.8 mmol/L L=3.4 H=5.2 11/14/2023 06:15 CHLORIDE SERUM 102 mmol/L L=96 H=110 11/14/2023 06:15 CARBON DIOXIDE (CO2) 27 mmol/L L=22 H=34 11/14/2023 06:15 ANION GAP 12.4 mmol/L 11/14/2023 06:15 CALCIUM SERUM 9.0 mg/dL L=8.2 H=10.2 11/14/2023 06:15 WBC 7.37 th/cmm L=5.00 H=10.00 11/14/2023 06:15 HEMOGLOBIN 12.7 L gm/dL L=13.0 H=17.0 11/14/2023 06:15 HEMATOCRIT 39 L % L=45 H=52 11/14/2023 06:15 PLATELET COUNT 231 th/cmm L=150 H=450 11/14/2023 06:15 MAGNESIUM 1.8 mg/dL L=1.8 H=2.4 11/14/2023 06:15 COVID NEGATIVE NEGATIVE Normal: Negative 11/13/2023 11:50 INFLUENZA A DNA NEGATIVE NEGATIVE Normal: Negative 11/13/2023 11:50 INFLUENZA B DNA NEGATIVE NEGATIVE Normal: Negative 11/13/2023 11:50 RSV DNA NEGATIVE NEGATIVE Normal: Negative 11/13/2023 11:50 GLUCOSE 91 mg/dL L=70 H=116 11/13/2023 11:18 BUN 20 mg/dL L=6 H=25 11/13/2023 11:18 CREATININE 1.08 mg/dL L=0.67 H=1.17 11/13/2023 11:18 SODIUM SERUM 141 mmol/L L=136 H=145 11/13/2023 11:18 POTASSIUM SERUM 3.9 mmol/L L=3.4 H=5.2 11/13/2023 11:18 CHLORIDE SERUM 103 mmol/L L=96 H=110 11/13/2023 11:18 CARBON DIOXIDE (CO2) 27 mmol/L L=22 H=34 11/13/2023 11:18 ANION GAP 10.7 mmol/L 11/13/2023 11:18 CALCIUM SERUM 9.0 mg/dL L=8.2 H=10.2 11/13/2023 11:18 CRP-HIGH SENS. 139.81 H mg/L L=0.00 H=3.00 11/13/2023 10:39 CRP-HIGH SENS 13.98 H mg/dL L=0.00 H=0.30 11/13/2023 10:39 WBC 7.48 th/cmm L=5.00 H=10.00 11/13/2023 10:39 HEMOGLOBIN 12.6 L gm/dL L=13.0 H=17.0 11/13/2023 10:39 HEMATOCRIT 38 L % L=45 H=52 11/13/2023 10:39 PLATELET COUNT 238 th/cmm L=150 H=450 11/13/2023 10:39 Hgb A1c 6.5 H % L=3.8 H=5.7 11/13/2023 10:39 MEAN BLOOD GLUCOSE 130 mg/dL 11/13/2023 10:39 SED. RATE 25 H mm/hr L=0 H=20 11/13/2023 10:39 Pertinent Imaging: Physical Exam: Date/Time BP (mm/Hg) Heart Rate Resp Temp (C) SPO2% O2 Device 11/14/2023 06:59 135/72 88 20 37 TEMPORAL SCANNING 98 % Room Air 21% General: Older gentleman appears comfortable, no acute distress Heart: Regular rate and rhythm with no murmurs rubs or gallops appreciated Lungs: Clear with no crackles or wheezes Abdomen: Normoactive bowel sounds, soft and nontender Extremities: Dorsum of right hand with mild residual edema, erythema and tenderness. There are puncture pack on the dorsum of his hand. History and Physical Notes [facility] 11/13/2023 20:25 Patient Name Age Sex Admission Date/Time MITUL GONZALEZ 1945 78 years Male 11/13/2023 09:13 11/13/2023 17:51 Admission Date: 11/13/2023 Reason for Admission: LEFT hand cellulitis, cat bite Code Status: FULL Attending Physician: Nadir Groves MD Primary Care Physician: FRANCESCO Young History of Present Illness Chief Complaint: LEFT HAND SWOLLEN 78-year-old male patient with PMH of T2DM, HTN, presents to the emergency department today with 3-day history of left hand redness, swelling, pain and warmth after he was bitten and scratched by a cat. He states it has been worsening over the last couple of days and has no discharge. He complains of feeling feverish and has taken Tylenol for this. In the emergency department vital signs 139/99, heart rate 84, respiratory rate 17, temperature 37.2 with O2 saturation 98% on room air. His left hand has erythema with soft tissue swelling and scabs over the bite/scratch pack and areas without fluctuance. Laboratories WNL with negative COVID/flu/RSV. Patient received 3 g Unasyn and will be admitted to the hospital service for further care and evaluation. 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, Hemangioma, Actinic keratosis, Surgery List: No Surgical History Available Family History List: No Family History Available Past Social History: Alcohol use: Denies Drug use: Denies Tobacco: Denies Allergy List No Known Drug Allergies, Medication Active Home Meds Tylenol Extra Strength 500MG Oral Tablet, 500 MILLIGRAMS, ORAL, NEEDED, 1-2 tabs Triamcinolone Acetonide 0.1% Topical application Cream, 1 EACH, TOPICAL APPLICATION, TWICE A DAY Ozempic 0.25 MG or 0.5 MG Doses 2 MG/3 ML Subcutaneous Solution, 1 EACH, SUBCUTANEOUS, WEEKLY, 0.5 Multivitamin Oral Tablet, 1 EACH, ORAL, metFORMIN HCl 1000MG Oral Tablet, 1000 MILLIGRAMS, ORAL, TWICE A DAY Lisinopril 20MG Oral Tablet, 20 MILLIGRAMS, ORAL, Ketoconazole 2% Topical application Shampoo, 1 EACH, TOPICAL APPLICATION, THREE TIMES A WEEK Jardiance 25MG Oral Tablet, 25 MILLIGRAMS, ORAL, Cetirizine HCl 10MG Oral Tablet, 10 MILLIGRAMS, ORAL, Benadryl Allergy 25MG Oral Tablet, 25 MILLIGRAMS, ORAL, Atorvastatin Calcium 40MG Oral Tablet, 40 MILLIGRAMS, ORAL, Aspirin Adult Low Dose 81MG Oral Tablet, Enteric Coated, 81 MILLIGRAMS, ORAL, Medication Reconciliation Source Patient Family PCP List Home List Pharmacy [facility] or Facility list X Review of Systems Pertinent positives and negatives listed in HPI Physical Exam Date/Time BP (mm/Hg) Heart Rate Resp Temp (C) SPO2% O2 Device 11/13/2023 15:13 135/81 74 17 98 % General - NAD, sitting up in bed, well groomed, nontoxic-appearing Eyes - noninjected anicteric ENT -normocephalic, atraumatic, MMM, nares patent, oral mucosa normal Cardiovascular - RRR no m/r/g, no JVD, normal S1, S2 Lungs - Clear to auscultation, no use of accessory muscles, no adventitious sounds Skin - dorsal aspect of LEFT hand with swelling, errythema not extending outside of drawn border, scabbed bite area, no pus, no fluctuance, warm to touch Abdomen - Normal bowel sounds, abdomen soft and nontender Extremities - No edema, DP PT 2+ Neurological - Alert and oriented x 3, nonfocal exam, answers questions appropriately, good historian Psych-no agitation, no anxiety Labs last 24 hours Test Results Units Reference Range Collected COVID NEGATIVE NEGATIVE Normal: Negative 11/13/2023 11:50 INFLUENZA A DNA NEGATIVE NEGATIVE Normal: Negative 11/13/2023 11:50 INFLUENZA B DNA NEGATIVE NEGATIVE Normal: Negative 11/13/2023 11:50 RSV DNA NEGATIVE NEGATIVE Normal: Negative 11/13/2023 11:50 GLUCOSE 91 mg/dL L=70 H=116 11/13/2023 11:18 BUN 20 mg/dL L=6 H=25 11/13/2023 11:18 CREATININE 1.08 mg/dL L=0.67 H=1.17 11/13/2023 11:18 SODIUM SERUM 141 mmol/L L=136 H=145 11/13/2023 11:18 POTASSIUM SERUM 3.9 mmol/L L=3.4 H=5.2 11/13/2023 11:18 CHLORIDE SERUM 103 mmol/L L=96 H=110 11/13/2023 11:18 CARBON DIOXIDE (CO2) 27 mmol/L L=22 H=34 11/13/2023 11:18 ANION GAP 10.7 mmol/L 11/13/2023 11:18 CALCIUM SERUM 9.0 mg/dL L=8.2 H=10.2 11/13/2023 11:18 WBC 7.48 th/cmm L=5.00 H=10.00 11/13/2023 10:39 HEMOGLOBIN 12.6 L gm/dL L=13.0 H=17.0 11/13/2023 10:39 HEMATOCRIT 38 L % L=45 H=52 11/13/2023 10:39 PLATELET COUNT 238 th/cmm L=150 H=450 11/13/2023 10:39 Hgb A1c 6.5 H % L=3.8 H=5.7 11/13/2023 10:39 MEAN BLOOD GLUCOSE 130 mg/dL 11/13/2023 10:39 Radiology: None EKG: None Problem List Cellulitis of hand Plan # LEFT hand cellulitis Elevation of left hand Serial laboratory monitoring Unasyn IV Consider orthopedic consult Inflammatory markers ordered Patient admitted as observation as I anticipate them to be here less than 2 midnights due to symptoms of LEFT hand cellulitis..
[2024-02-02 14:37] LABS: HCT 44.3 % (40.0-50.0); HGB 14.2 g/dL (13.5-17.5); MCH 31.2 pg (27.0-33.0); MCHC 32.1 % (32.0-36.0); MCV 97 fL (80-95); MPV 11.3 fL (8.0-11.0); Platelet Count 234 10^3/uL (130-400); RBC 4.55 10^6/uL (4.36-5.78); RDW 14.6 % (11.8-14.1); RDW-SD 52.6 fL; WBC 4.74 10^3/uL (4.4-10.8)
[2024-02-02 14:58] LABS: Hemoglobin A1C 6.4 % (<5.7)
[2024-02-02 15:03] LABS: ALT 21 U/L (16-63); AST 21 U/L (15-37); Albumin 4.1 g/dL (3.4-5.0); Alkaline Phosphatase 71 U/L (46-116); Anion Gap 9.6 mmol/L (3-11); BUN 18 mg/dL (7-18); Bilirubin, Total 0.85 mg/dL (0.2-1.0); CO2 28.4 mmol/L (21.0-32.0); CREATININE 1.1 mg/dL (0.70-1.30); Calcium 9.6 mg/dL (8.5-10.1); Calculated LDL 45 mg/dL (<100); Chloride 104 mmol/L (98-107); Cholesterol 119 mg/dL (<200); Estimated GFR 69.14 (mL/min/1.73m2); Glucose 118 mg/dL (74-106); HDL Cholesterol 38 mg/dL (40-60); Potassium 4.4 mmol/L (3.5-5.1); Sodium 142 mmol/L (136-145); Total Protein 7.7 g/dL (6.4-8.2); Triglyceride 182 mg/dL (<150)
== END 2024-02-02 12:22 | disposition home or self-care (01) ==
LOC: NCHCN 12:21
PROVIDERS: PCP Nurse Practitioner Family; Visit Provider Internal Medicine
DX: I10 Essential (primary) hypertension (principal)
CPT/HCPCS: 80053; 80061; 85027; 83036

== ENCOUNTER 2025-02-19 11:58 | Outpatient (REF) | payer MEDICARE, SELFPAY ==
[2025-02-19 15:16] LABS: HCT 40.2 % (40.0-50.0); HGB 12.8 g/dL (13.5-17.5); MCH 30.7 pg (27.0-33.0); MCHC 31.8 % (32.0-36.0); MCV 96 fL (80-95); MPV 10.8 fL (8.0-11.0); Platelet Count 250 10^3/uL (130-400); RBC 4.17 10^6/uL (4.36-5.78); RDW 13.9 % (11.8-14.1); RDW-SD 49.3 fL; WBC 4.20 10^3/uL (4.4-10.8)
[2025-02-19 15:22] LABS: ESR 5 mm/hr (0-20)
[2025-02-19 15:30] LABS: Hemoglobin A1C 7.1 % (<5.7)
[2025-02-19 15:33] LABS: C-Reactive Protein < 0.50 mg/dL (<=0.50)
[2025-02-19 15:38] LABS: ALT 18 U/L (10-49); AST 21 U/L (<34); Albumin 4.5 g/dL (3.2-5.0); Alkaline Phosphatase 70 U/L (46-116); Anion Gap 10.3 mmol/L (3-11); BUN 19 mg/dL (9-23); Bilirubin, Total 0.6 mg/dL (0.2-1.2); CO2 26.7 mmol/L (20.0-31.0); Calcium 9.7 mg/dL (8.3-10.6); Chloride 106 mmol/L (98-107); Glucose 115 mg/dL (74-106); Potassium 4.9 mmol/L (3.5-5.1); Sodium 143 mmol/L (136-145); Total Protein 7.2 g/dL (5.7-8.2)
== END 2025-02-19 11:59 | disposition home or self-care (01) ==
LOC: NCHCN 11:58
PROVIDERS: PCP Nurse Practitioner Family; Visit Provider Internal Medicine
DX: E11.9 Type 2 diabetes mellitus without complications (principal); R51.9 Headache, unspecified
CPT/HCPCS: 80053; 85027; 85652; 83036; 86140